=== PATIENT | female | born 1995 | race Caucasian/White ===

== ENCOUNTER → 2019-08-25 11:41 | Outpatient (CLI) | payer BC, MEDICAID, SELFPAY ==
--- NOTE | ~2019-08-25 | XR_ITS ---
EXAMINATION: XR chest 2V EXAM DATE: 08/25/2019 11:56 INDICATION: Cough. TECHNIQUE: Frontal and lateral projections of the chest obtained and reviewed. There is no prior sylvia dy for comparison. FINDINGS: The lungs are clear. There are no pleural effusions. The cardiomediastinal silhouette is within normal limits. There is no pneumothorax suspected. The bones and soft tissues are unremarkab le. IMPRESSION: Normal chest x-ray exam. Reviewed, dictated and finalized at location B. ERHOUSE MECHANIC IMPRESSION: Normal chest x-ray exam.
== END ==
PROVIDERS: PCP Family Medicine; Visit Provider Family Medicine
DX: R05 Cough (principal)
CPT/HCPCS: 71046

== ENCOUNTER 2020-02-15 22:54 | Emergency (ER) | payer MEDICAID, SELFPAY ==
[2020-02-15 22:54] VITALS: BP 146/99; PULSE 89; RESP 14; TEMP 37.2; O2SAT 99
--- NOTE | 2020-02-15 23:02 | ECG_ITS ---
Measurements Intervals [place] Rate: 70 P: 54 ND: 149 QRS: 37 QRSD: 104 T: 26 QT: 373 QTc: 405 Interpretive Statements SINUS RHYTHM WITH MARKED SINUS ARRHYTHMIA MINIMAL Q WAVES- INFERIOR LEADS BASELINE ARTIFACT- I, II, III, AVR, AVL, AVF, V1-V6 BORDERLINE ECG Electronically Signed On 02-16-2020 7:27:49 CDT by Vance Sanchez D.O.
--- NOTE | 2020-02-15 23:02 | ED.PSYCH ---
HPI - Psych General Chief Complaint: Psychiatric Symptoms Stated Complaint: SI Source: patient and EMS Mode of arrival: EMS Limitations: no limitations History of Present Illness HPI Narrative: Patient is a 24-year-old female with a history of bipolar disorder, anxiety, depression, former substance abuse who presents for evaluation of depression. Patient states that she relapsed this evening, after 3 years of drug sobriety, used air duster this evening. She states that she this was not an effort to end her life, but her significant other found her collapsed on the bed, and was worried that she was attempting to harm herself that she has made suicidal claims in the past. No history of suicide attempt. Patient denies other drug use. States that she follows at [facility], also has been with [facility] which has been very helpful to her. Patient states she was recently started on a new medication by her [facility] physician, and she feels this is been detrimental to her mental health. Related Data Home Medications Medication Instructions Recorded Confirmed albuterol sulfate 90 mcg/actuation 2 puff INHALATION Q4H gm 07/27/19 aerosol inhaler oxcarbazepine 600 mg tablet 600 mg PO DAILY tablet 07/27/19 quetiapine 50 mg tablet 50 mg PO BID 07/27/19 temazepam 30 mg capsule 30 mg PO ONCE 07/27/19 clonazepam 02/15/20 Allergies Allergy/AdvReac Type Severity Reaction Status Date / Time latex Allergy Unknown Itching Verified 02/15/20 23:21 Penicillins Allergy Unknown Unknown Verified 02/15/20 23:21 Review of Systems Review of Systems: Narrative: CONSTITUTIONAL: Denies fever, chills, or sweats. EYES: Denies visual changes ENT: Denies rhinorrhea, congestion, sore throat, or otalgia. CARDIOVASCULAR: Denies chest pain RESPIRATORY: Denies cough or dyspnea. GASTROINTESTINAL: Denies abdominal pain, nausea, vomiting GENITOURINARY: Denies dysuria or hematuria. SKIN: Denies rash or itching. MUSCULOSKELETAL: Denies back pain, joint pain, or myalgia. NEUROLOGIC: Denies headache, numbness, or weakness. PSYCHIATRIC: Reports anxiety and depression, denies suicidal ideation PMFSH Past Medical History Medical History (Updated 02/15/20 @ 23:20 by Corazon Das MD) Bipolar disorder Bronchitis Depression Substance abuse Surgical History Surgical History (Updated 02/15/20 @ 23:16 by Corazon Das MD) H/O removal of cyst H/O wisdom tooth extraction Social History Social History (Updated 02/15/20 @ 23:17 by Corazon Das MD) Smoking status: Never smoker Second hand tobacco smoke exposure: Yes Alcohol intake: never Substance use: current Substance use type: inhalants and other Living arrangements: with family Gender identity (if verbalized by the patient): Female Exam Narrative: Exam Narrative: GENERAL: Awake, alert, conversant HEAD: Normocephalic, atraumatic. EYES: PERRLA and EOMI. ENT: Nares clear, no rhinorrhea or epistaxis. Mucous membranes moist. NECK: Supple. CHEST: No respiratory distress, breathing even and non labored HEART: Regular rate, sinus rhythm ABDOMEN:Non distended, non tender EXTREMITIES: Normal range of motion. No edema. SKIN: Warm, dry, no rash. NEURO:No focal deficits. Alert and oriented x3 Psych: Denies suicidal ideation, denies auditory visual hallucinations, reports depression, no anhedonia, affect is appropriate Course Vital Signs Vital signs: Vital Signs Temperature 37.2 C 02/15/20 22:54 Pulse Rate 89 02/15/20 22:54 Respiratory Rate 14 02/15/20 22:54 Blood Pressure 146/99 H 02/15/20 22:54 Pulse Oximetry 99 02/15/20 22:54 Temperature 37.1 C 02/16/20 04:19 Pulse Rate 91 02/16/20 04:19 Respiratory Rate 16 02/16/20 04:19 Blood Pressure 137/84 02/16/20 04:19 Pulse Oximetry 94 02/16/20 04:19 MDM - Psych MDM Narrative Medical decision making narrative: Patient presented after use of inhalant earlie
[2020-02-15 23:24] LABS: Basophils Absolute Auto 0.1 K/mm3 (0.0-0.1); Basophils Percent Auto 0.3 % (0.2-1.2); Eosinophils Absolute Auto 0.1 K/mm3 (0-0.3); Eosinophils Percent Auto 0.7 % (0-4.4); Hematocrit 38.8 % (37.0-47.0); Immature Granulocyte Absolute 0.08 K/mm3 (0.00-0.031); Immature Granulocyte Percent A 0.5 % (0-0.5); Lymphocytes Absolute Auto 2.59 K/mm3 (0.9-3.2); Lymphocytes Percent Auto 16.1 % (18.3-44.2); Mean Corpuscular HGB Conc 33.5 g/dl (32-36); Mean Corpuscular Hemoglobin 32.2 pg (26-34); Mean Platelet Volume 8.6 fl (7.4-10.4); Monocytes Absolute Auto 1.4 K/mm3 (0.1-0.6); Monocytes Percent Auto 8.4 % (2.6-8.5); Neutrophils Absolute Auto 11.9 K/mm3 (1.3-6.7); Platelet Count Result 518 k/mm3 (150-375); Red Blood Count 4.04 M/mm3 (4.2-5.4); Red Cell Distribution Width 13.5 % (11.5-14.5); White Blood Count 16.1 K/mm3 (4.5-10.0)
[2020-02-15 23:38] LABS: Alanine Aminotransferase 19 U/L (4-35); Albumin Level 4.3 g/dL (3.5-5.1); Alkaline Phosphatase 87 U/L (38-126); Aspartate Amino Transferase 31 U/L (14-36); Bilirubin,Total 0.4 mg/dL (0.2-1.3); Blood Urea Nitrogen 11 mg/dL (7-17); Calcium 8.8 mg/dL (8.4-10.2); Carbon Dioxide 24 mmol/L (22-30); Chloride 105 mmol/L (98-107); Estimated CRCL calculation 115 ml/min; Estimated Glomerular Filt Rate > 60; Glucose 118 mg/dL (65-105); Potassium 3.4 mmol/L (3.4-5.0); Sodium 137 mmol/L (137-145)
[2020-02-15 23:50] LABS: Add Urine Microscopic? YES; Appearance Urine Cloudy (Clear); Bacteria Urine Trace /hpf; Bilirubin Urine Negative (Negative); Blood Urine 1+ (Negative); Color Urine Yellow (Yellow); Glucose Urine UA Negative (Negative); Ketones Urine Negative (Negative); Leukocyte Esterase Ur Trace LEU/UL (Negative); Nitrate Urine Negative (Negative); Protein Urine Negative (Negative); Specific Grav Ur 1.008 (1.001-1.035); Squamous Epithelial Cell Urine Many /hpf (Few); Urobilinogen Urine Negative mg/dL (<2.0)
[2020-02-16] MEDS: ONDANSETRON HCL ODT 4 MG TABLET PO (00:40)
[2020-02-16] MEDS: LORazepam 0.5 MG TABLET PO (01:19)
[2020-02-16 01:33] LABS: Amphetamine Screen Urine Negative (Negative); Barbiturate Screen Urine Negative (Negative); Benzodiazepines Screen Urine Negative (Negative); Cannabinoid Screen Urine Positive (Negative); Cocaine Screen Urine Negative (Negative); Methadone Screen Urine Negative (Negative); Opiate Screen Urine Negative (Negative); Phencyclidine Screen Urine Negative (Negative)
[2020-02-16 02:01] VITALS: BP 147/71; PULSE 95; RESP 12; O2SAT 98
--- NOTE | 2020-02-16 03:01 | PC.NURSE ---
Patient getting anxious in room stated I'm tired of waiting on Crisis, stop playing games with me, they aren't even coming.
--- NOTE | 2020-02-16 03:25 | PC.NURSE ---
Crisis here at this time.
[2020-02-16 04:19] VITALS: BP 137/84; PULSE 91; RESP 16; TEMP 37.1; O2SAT 94
== END 2020-02-16 04:50 | disposition home or self-care (01) ==
PROVIDERS: Emergency Provider Emergency Medicine; PCP Family Medicine
DX: F18.10 Inhalant abuse, uncomplicated (principal); F31.9 Bipolar disorder, unspecified; R94.31 Abnormal electrocardiogram [ECG] [EKG]
CPT/HCPCS: 36415; 80053; 80307; 81001; 81025; 84443; 85025; 87077; 87086; 87088; 87186; 93005; 99284; A9270

== ENCOUNTER 2020-09-27 23:59 | Emergency (ER) | payer OTHER, SELFPAY ==
[2020-09-28] VITALS (8 sets, daily range): BP systolic 103–149; BP diastolic 58–97; PULSE 90–100; RESP 16–20; TEMP 36.8–37; O2SAT 97–100
--- NOTE | 2020-09-28 00:06 | ECG_ITS ---
Measurements Intervals [place] Rate: 91 P: 27 IN: 161 QRS: 19 QRSD: 99 T: 3 QT: 351 QTc: 433 Interpretive Statements SINUS RHYTHM POOR R WAVE PROGRESSION, ANTERIOR LEADS INFERIOR INFARCT, AGE INDETERMINATE BASELINE WANDER- V2, V5 ABNORMAL ECG Electronically Signed On 09-28-2020 7:07:06 INTERNET PROJECT MANAGER by Vance Sanchez D.O.
--- NOTE | 2020-09-28 00:53 | PC.NURSE ---
mother and boyfriend in waiting area, boyfriend has text of pt stating she wanted to be , boyfriend denied telling pt to kill herself. mother walked to room to sit with pt. pt still denying suicidal or homicidal thoughts.
[2020-09-28 01:08] LABS: Add Urine Microscopic? YES; Appearance Urine Cloudy (Clear); Basophils Percent Auto 0.3 % (0.2-1.2); Bilirubin Urine Negative (Negative); Blood Urine 3+ (Negative); Color Urine Yellow (Yellow); Eosinophils Absolute Auto 0.1 K/mm3 (0-0.3); Eosinophils Percent Auto 0.5 % (0-4.4); Glucose Urine UA Negative (Negative); Hematocrit 37.8 % (37.0-47.0); Hemoglobin 12.5 g/dL (12.0-15.0); Immature Granulocyte Absolute 0.08 K/mm3 (0.00-0.031); Immature Granulocyte Percent A 0.6 % (0-0.5); Ketones Urine Negative (Negative); Leukocyte Esterase Ur Negative LEU/UL (Negative); Lymphocytes Absolute Auto 2.49 K/mm3 (0.9-3.2); Lymphocytes Percent Auto 19.2 % (18.3-44.2); Mean Corpuscular HGB Conc 33.1 g/dl (32-36); Mean Corpuscular Hemoglobin 31.3 pg (26-34); Mean Corpuscular Volume 94.5 fl (80-100); Mean Platelet Volume 8.6 fl (7.4-10.4); Monocytes Absolute Auto 0.8 K/mm3 (0.1-0.6); Monocytes Percent Auto 6.3 % (2.6-8.5); Mucus Urine Heavy /lpf; Neutrophils Absolute Auto 9.5 K/mm3 (1.3-6.7); Neutrophils Percent Auto 73.1 % (45.5-73.1); Nitrate Urine Negative (Negative); Platelet Count Result 470 k/mm3 (150-375); Protein Urine 1+ mg/dL (Negative); Red Cell Distribution Width 14.6 % (11.5-14.5); Specific Grav Ur 1.016 (1.001-1.035); Squamous Epithelial Cell Urine Many /hpf (Few); Urobilinogen Urine Negative mg/dL (<2.0)
[2020-09-28 01:11] LABS: Alanine Aminotransferase 19 U/L (4-35); Albumin Level 4.2 g/dL (3.5-5.1); Alkaline Phosphatase 85 U/L (38-126); Anion Gap 8 mmol/L (8-16); Aspartate Amino Transferase 24 U/L (14-36); Bilirubin,Total 0.2 mg/dL (0.2-1.3); Blood Urea Nitrogen 19 mg/dL (7-17); Carbon Dioxide 26 mmol/L (22-30); Chloride 107 mmol/L (98-107); Estimated CRCL calculation 120 ml/min; Estimated Glomerular Filt Rate > 60; Glucose 97 mg/dL (65-105); Potassium 3.9 mmol/L (3.4-5.0); Sodium 141 mmol/L (137-145)
[2020-09-28 01:13] LABS: Acetaminophen < 10 ug/mL (10-30); Ethanol < 10 mg/dL (<10); Salicylate < 1.0 mg/dL (2-20)
--- NOTE | 2020-09-28 01:39 | ED.GENADULT ---
HPI - General Adult General Chief complaint: Psychiatric Symptoms <Wilfrid Zhu MD - Last Filed: 09/29/20 06:45> Stated complaint: SI <Wilfrid Zhu MD - Last Filed: 09/29/20 06:45> Time Seen by Provider: 09/28/20 00:05 <Wilfrid Zhu MD - Last Filed: 09/29/20 06:45> History of Present Illness HPI narrative: Patient is a 24-year-old female that presents the emergency department with chief complaint of needs mental health evaluation. The patient reports that she was in an argument with her boyfriend this evening and was outside sitting in the vehicle when police showed up. Per EMS and police patient had made threats of wanting to harm herself this evening. The patient states that currently she has no thoughts of hurting herself reports that she has been very anxious lately states that she has history of depression. Patient reports no plan to harm her self. <Wilfrid Zhu MD - Last Filed: 09/29/20 06:45> Related Data Home medications: Home Medications Medication Instructions Recorded Confirmed albuterol sulfate 90 mcg/actuation 2 puff INHALATION Q4H gm 07/27/19 04/09/20 aerosol inhaler oxcarbazepine 600 mg tablet 600 mg PO BID tablet 07/27/19 04/09/20 quetiapine 50 mg tablet 50 mg PO BID 07/27/19 04/09/20 temazepam 30 mg capsule 30 mg PO ONCE 07/27/19 04/09/20 bupropion HCl mg PO 09/28/20 clonazepam 09/28/20 quetiapine 400 mg PO HS 09/28/20 <Wilfrid Zhu MD - Last Filed: 09/29/20 06:45> Allergies/adverse reactions: Allergies Allergy/AdvReac Type Severity Reaction Status Date / Time latex Allergy Unknown Itching Verified 09/28/20 08:19 Penicillins Allergy Unknown Unknown Verified 09/28/20 08:19 <Wilfrid Zhu MD - Last Filed: 09/29/20 06:45> Review of Systems Review of Systems: Narrative: A 10 system review of systems was completed on the patient and is negative except for what is stated in the HPI. Nursing and ancillary documentation was reviewed. <Wilfrid Zhu MD - Last Filed: 09/29/20 06:45> PMFSH Past Medical History Medical History: Medical History (Updated 09/29/20 @ 00:00 by Sylvie Fairchild) Bipolar disorder Bronchitis Depression Substance abuse <Wilfrid Zhu MD - Last Filed: 09/29/20 06:45> Surgical History Surgical History: Surgical History H/O removal of cyst H/O wisdom tooth extraction <Wilfrid Zhu MD - Last Filed: 09/29/20 06:45> Family History Family History: Family History Mother Diabetes mellitus Depression Family history of malignant neoplasm of cervix Grandparent Diabetes mellitus Depression Family history of malignant neoplasm of cervix Family history of lung cancer Father Family history of mental disorder Depression Hypertension <Wilfrid Zhu MD - Last Filed: 09/29/20 06:45> Social History Social History: Social History Smoking packs per day: 0.5 Smoking cigarettes per day: 10.0 Years smoked: 3 Smoking pack-years: 1.50 Smoking status: Former smoker Second hand tobacco smoke exposure: Yes Alcohol intake: never Substance use: current Substance use type: marijuana, inhalants and other Gender identity (if verbalized by the patient): Female <Wilfrid Zhu MD - Last Filed: 09/29/20 06:45> Exam Narrative: Exam Narrative: GENERAL: Well-appearing, well-nourished, and in no acute distress. HEAD: Normocephalic, atraumatic. EYES: PERRLA and EOMI. ENT: Nares clear, no rhinorrhea or epistaxis. Mucous membranes moist. NECK: Supple. CHEST: Clear to auscultation. No respiratory distress. HEART: Regular rate and rhythm. No murmur heard. Normal peripheral pulses. ABDOMEN: So
[2020-09-28 02:30] LABS: Amphetamine Screen Urine Negative (Negative); Barbiturate Screen Urine Negative (Negative); Benzodiazepines Screen Urine Positive (Negative); Cannabinoid Screen Urine Positive (Negative); Cocaine Screen Urine Negative (Negative); Methadone Screen Urine Negative (Negative); Opiate Screen Urine Negative (Negative); Phencyclidine Screen Urine Negative (Negative)
[2020-09-28] MEDS: LORazepam INJ (*CRX) 2 MG/ML VIAL IM (03:36)
[2020-09-28] MEDS: HALOPERIDOL LACTATE 5 MG/ML VIAL IM (04:23)
[2020-09-28] MEDS: diphenhydrAMINE HCl INJ 50 MG/ML VIAL IM (04:23)
--- NOTE | 2020-09-28 09:15 | PC.NURSE ---
Pt taken to room H3
[2020-09-28] MEDS: QUEtiapine FUMARATE 25 MG TABLET 50 MG PO ×2 (10:16→20:53)
[2020-09-28] MEDS: OXcarbazepine 300 MG TABLET 600 MG PO ×2 (10:16→20:53)
--- NOTE | 2020-09-28 10:55 | PC.NURSE ---
Pt currently on telephone in hallway speaking w/ family member. Pt calm, cooperative. Sitter at pts bedside.
--- NOTE | 2020-09-28 11:45 | PC.NURSE ---
Patient noted to be resting on stretcher with her father in room with her. She wakes easily to verbal stimuli. Patient tells me that she was brought into the ED because of a suicidal threat that was sent to her boyfriend. 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 She denies any desire or thoughts to harm or kill herself or to hurt others. Patient reports psychiatric history as noted on the psychosocial assessment. At this time she is awake, alert, and oriented x 4.
--- NOTE | 2020-09-28 13:00 | PC.NURSE ---
Chart was faxed to [facility] at 1300 after call was received requesting it.
[2020-09-28] MEDS: IBUPROFEN 400 MG TABLET 800 MG PO (15:25)
[2020-09-28] MEDS: clonazePAM (*CRX) 0.5 MG TABLET 1 MG PO (15:26)
--- NOTE | 2020-09-28 16:28 | PC.NURSE ---
PT HAS BEEN ACCEPTED AT [facility] PENDING NEGATIVE COVID SWAB DR WOODY IS ACCEPTING PROVIDER, WHO ALSO REQUESTED THAT THE PT BE STARTED ON UTI MEDICATION ASKING FOR FACESHEET AND NEG COVID SCREEN TO BE FAXED WHEN RESULTS ARE IN
[2020-09-28 19:48] LABS: SARS-CoV-2 RNA PCR Negative
== END 2020-09-28 23:22 ==
PROVIDERS: Emergency Medicine; Emergency Provider General Practice; PCP Family Medicine
DX: R45.851 Suicidal ideations (principal); F31.9 Bipolar disorder, unspecified; Z87.891 Personal history of nicotine dependence; Z20.822 Contact with and (suspected) exposure to COVID-19; R94.31 Abnormal electrocardiogram [ECG] [EKG]
CPT/HCPCS: 36415; 80053; 80307; 81001; 81025; 84443; 85025; 87086; 87088; 93005; 96372; 99285; A9270; C9803; J1200; J1630; J2060; U0003; U0005

== ENCOUNTER 2022-01-31 14:34 | Emergency (ER) | payer OTHER, SELFPAY ==
--- NOTE | ~2022-01-31 | XR_ITS ---
EXAM: XR knee RT min 4V DATE: 01/31/2022 14:54 HISTORY: pain/PRESSURE S/P STEPPING WRONG . COMPARISON: None available. FINDINGS: Normal mineralization. No fracture or dislocation. No lytic or blastic lesion. Joint space s are maintained. No erosion or periosteal change. Moderate volume joint effusion. IMPRESSION: No acute osseous finding in the right knee. Reviewed, dictated and finalized at location K.
[2022-01-31 14:35] VITALS: BP 154/90; PULSE 114; RESP 18; TEMP 36.3; O2SAT 98
--- NOTE | 2022-01-31 15:32 | ED.LOWEXIN ---
HPI - Extremity Injury (Lower) General Chief Complaint: Extremity Injury, Lower <Nicole Jean PA-C - Last Filed: 01/31/22 15:38> Stated Complaint: right knee pain <RENE Kramer Last Filed: 01/31/22 15:38> Time Seen by Provider: 01/31/22 14:49 <Nicole Jean PA-C - Last Filed: 01/31/22 15:38> Source: patient <RENE Kramer Last Filed: 01/31/22 15:38> Mode of arrival: ambulatory <RENE Kramer Last Filed: 01/31/22 15:38> Limitations: no limitations <RENE Kramer Last Filed: 01/31/22 15:38> History of Present Illness HPI Narrative: This is a 26 year old female that presents to the ER for right knee pain after an injury one week ago. Reports she was walking down the steps carrying a heavy box and felt the knee twist. Since she has had pain and swelling in the knee. Pain is worse with weight bearing and bending down. Denies decreased ROM or numbness. <RENE Kramer Last Filed: 01/31/22 15:38> Related Data Home Medications: Home Medications Medication Instructions Recorded Confirmed albuterol sulfate 90 mcg/actuation 2 puff inhalation Q4H 07/27/19 04/09/20 aerosol inhaler (ProAir HFA) oxcarbazepine 600 mg tablet 600 mg PO BID 07/27/19 04/09/20 (Trileptal) quetiapine 50 mg tablet (Seroquel) 50 mg PO BID 07/27/19 04/09/20 temazepam 30 mg capsule (Restoril) 30 mg PO ONCE 07/27/19 04/09/20 bupropion HCl 150 mg 24 hr tablet, mg PO 09/28/20 extended release clonazepam 1 mg tablet 09/28/20 quetiapine 400 mg tablet 400 mg PO HS 09/28/20 <RENE Kramer Last Filed: 01/31/22 15:38> Allergies/Adverse Reactions: Allergies Allergy/AdvReac Type Severity Reaction Status Date / Time latex Allergy Unknown Itching Verified 01/31/22 14:35 Penicillins Allergy Unknown Unknown Verified 01/31/22 14:35 <Nicole Jean PA-C - Last Filed: 01/31/22 15:38> Review of Systems Review of Systems: CONSTITUTIONAL: Denies fever SKIN: Denies rash MUSCULOSKELETAL: Reports joint pain, and myalgia. NEUROLOGIC: Denies numbness, or weakness. <Nicole Jean PA-C - Last Filed: 01/31/22 15:38> All systems reviewed & are unremarkable except as noted in HPI and below <Nicole Jean PA-C - Last Filed: 01/31/22 15:38> [facility] Past Medical History Medical History: Medical History (Updated 01/31/22 @ 15:38 by Nicole Jean PA-C) Bipolar disorder Bronchitis Depression Substance abuse <Nicole Jean PA-C - Last Filed: 01/31/22 15:38> Surgical History Surgical History: Surgical History H/O removal of cyst H/O wisdom tooth extraction <Nicole Jean PA-C - Last Filed: 01/31/22 15:38> Family History Family History: Family History Mother Diabetes mellitus Depression Family history of malignant neoplasm of cervix Grandparent Diabetes mellitus Depression Family history of malignant neoplasm of cervix Family history of lung cancer Father Family history of mental disorder Depression Hypertension <Nicole Jean PA-C - Last Filed: 01/31/22 15:38> Social History Social History: Social History Smoking packs per day: 0.5 Smoking cigarettes per day: 10.0 Years smoked: 3 Smoking pack-years: 1.50 Smoking status: Former smoker Second hand tobacco smoke exposure: Yes Alcohol intake: never Substance use: current Substance use type: marijuana, inhalants and other Gender identity (if verbalized by the patient): Female <Nicole Jean PA-C - Last Filed: 01/31/22 15:38> Exam Narrative: GENERAL: Well-appearing, well-nourished, and in no acute distress. HEAD: Normocephalic, atraumatic. EYES: EOMI. EXTREMITIES: Normal range of motion. No edema, erythema or obvious deformity.
== END 2022-01-31 15:50 | disposition home or self-care (01) ==
PROVIDERS: Emergency Provider Emergency Medicine; PCP Nurse Practitioner
DX: S83.91XA Sprain of unspecified site of right knee, initial encounter (principal); F31.9 Bipolar disorder, unspecified; Z87.891 Personal history of nicotine dependence; X50.9XXA Other and unspecified overexertion or strenuous movements or postures, initial encounter
CPT/HCPCS: 73564; 99283

== ENCOUNTER 2022-02-07 20:32 | Emergency (ER) | payer OTHER, SELFPAY ==
--- NOTE | ~2022-02-07 | XR_ITS ---
EXAMINATION: XR chest 2V Exam Date/Time: 02/07/2022 20:50 CDT HISTORY: pain when coughing on right side of chest,HX ASTHMA Comparison: 08/25/2019. RESULT: Lines, tubes, and devices: None. Lungs and pleura: Clear. Cardiomediastinal silhouette: Stable cardiomediastinal silhouette. Other: No acute osseous or upper abdominal finding. Stable exaggerated thoracic kyphosis. IMPRESSION: No acute cardiopulmonary process. Reviewed, dictated and finalized at location K.
[2022-02-07 20:34] VITALS: BP 174/82; PULSE 95; RESP 18; TEMP 36.4; O2SAT 97
--- NOTE | 2022-02-07 21:11 | ED.SOB ---
HPI - SOB/Dyspnea General Chief Complaint: Shortness of Breath/Dyspnea Stated Complaint: URI Time Seen by Provider: 02/07/22 20:47 History of Present Illness HPI Narrative: 18-year-old female presents the emergency room for evaluation of cough shortness of breath. Patient states that she was seen at her primary care's office 3 days ago for similar symptoms, was diagnosed with possible pneumonia and started on Keflex. Patient states that she is got a history of asthma. Patient is also complaining of sinus congestion, postnasal drip, frequently clearing her throat, rhinorrhea, and occasional sneeze. Patient denies fever. Related Data Home Medications Medication Instructions Recorded Confirmed albuterol sulfate 90 mcg/actuation 2 puff inhalation Q4H 07/27/19 04/09/20 aerosol inhaler (ProAir HFA) oxcarbazepine 600 mg tablet 600 mg PO BID 07/27/19 04/09/20 (Trileptal) quetiapine 50 mg tablet (Seroquel) 50 mg PO BID 07/27/19 04/09/20 temazepam 30 mg capsule (Restoril) 30 mg PO ONCE 07/27/19 04/09/20 bupropion HCl 150 mg 24 hr tablet, mg PO 09/28/20 extended release clonazepam 1 mg tablet 09/28/20 quetiapine 400 mg tablet 400 mg PO HS 09/28/20 Allergies Allergy/AdvReac Type Severity Reaction Status Date / Time latex Allergy Unknown Itching Verified 02/07/22 20:37 Penicillins Allergy Unknown Unknown Verified 02/07/22 20:37 Review of Systems Review of Systems: CONSTITUTIONAL: Denies fever, chills, or sweats. EYES: Denies visual changes, redness, or discharge. ENT: Reports rhinorrhea, congestion, sore throat, or otalgia. CARDIOVASCULAR: Denies chest pain, palpitations, or edema. RESPIRATORY: Reports cough or dyspnea. GASTROINTESTINAL: Denies abdominal pain, nausea, vomiting, or diarrhea. GENITOURINARY: Denies dysuria or hematuria. SKIN: Denies rash or itching. MUSCULOSKELETAL: Denies back pain, joint pain, or myalgia. NEUROLOGIC: Denies headache, numbness, dizziness, or weakness. PSYCHIATRIC: Denies anxiety or depression. [facility] Past Medical History Medical History Bipolar disorder Bronchitis Depression Substance abuse Surgical History Surgical History H/O removal of cyst H/O wisdom tooth extraction Family History Family History Mother Diabetes mellitus Depression Family history of malignant neoplasm of cervix Grandparent Diabetes mellitus Depression Family history of malignant neoplasm of cervix Family history of lung cancer Father Family history of mental disorder Depression Hypertension Social History Social History Smoking packs per day: 0.5 Smoking cigarettes per day: 10.0 Years smoked: 3 Smoking pack-years: 1.50 Smoking status: Former smoker Second hand tobacco smoke exposure: Yes Alcohol intake: never Substance use: current Substance use type: marijuana, inhalants and other Gender identity (if verbalized by the patient): Female Exam Narrative: GENERAL: Well-appearing, well-nourished, and in no acute distress. HEAD: Normocephalic, atraumatic. EYES: PERRLA and EOMI. ENT: Clear rhinorrhea without epistaxis. Mucous membranes moist. Oropharynx without tonsillar hypertrophy exudate or other lesions. Bilateral TMs pearly sands nonbulging NECK: Supple. No adenopathy or masses. No carotid bruits or JVD CHEST: Clear to auscultation. No respiratory distress. No wheezes rales or rhonchi HEART: Regular rate and rhythm. No murmur heard. Normal peripheral pulses. ABDOMEN: Soft, nontender, morbidly obese, normal active bowel sounds. EXTREMITIES: Normal range of motion. No edema. SKIN: Warm, dry, no rash. NEURO: No focal deficits. Alert and oriented x3. PSYCH: Normal mood and affect. Course Vital Signs Vital signs: Vital Signs Temperature
[2022-02-07 21:27] VITALS: O2SAT 97
== END 2022-02-07 21:56 | disposition home or self-care (01) ==
LOC: ANHED 21:23
PROVIDERS: Emergency Provider Nurse Practitioner Family; PCP Nurse Practitioner
DX: J06.9 Acute upper respiratory infection, unspecified (principal); F31.9 Bipolar disorder, unspecified
CPT/HCPCS: 71046; 96372; 99283; J1100

== ENCOUNTER 2023-05-24 18:43 | Emergency (ER) | payer OTHER, SELFPAY ==
--- NOTE | ~2023-05-24 | CT_ITS ---
EXAMINATION: CT abdomen pelvis w con DATE: 05/24/2023 20:55 INDICATION: abdominal pain TECHNIQUE: Computed tomography (CT) of the abdomen and pelvis was performed with 100 mL Omnipaque-350 intravenous contrast. Automated exposure control and iterative reconstruction technique were employe d. The dose-length product was 1601.79 mGy-cm. COMPARISON: None. FINDINGS: Lower thorax: Unremarkable Liver: Normal. Biliary/Gallbladder: Gallbladder is normal. No bile duct dilation. Pancreas: No mass or duct dilation. Spleen: Normal. Adrenals:No mass. Kidneys: No suspicious mass, obstructing stone, or hydronephrosis. GI tract: No small or large bowel dilation. Normal appendix. Mesentery/Peritoneum: No ascites, mass, or free air. Retroperitoneum: No mass. Pelvis: Pelvic organs are within normal limits. Soft Tissues: Soft tissues and body wall unremarkable. Bones: No acute osseous finding. IMPRESSION: No acute abdominopelvic process detected Reviewed, dictated and finalized at location K.
[2023-05-24 18:44] VITALS: BP 131/77; PULSE 102; RESP 16; TEMP 36.8; O2SAT 100
--- NOTE | 2023-05-24 20:05 | ECG_ITS ---
Measurements Intervals [place] Rate: 84 P: 41 MA: 163 QRS: 41 QRSD: 101 T: 15 QT: 358 QTc: 423 Interpretive Statements SINUS RHYTHM COMPARED TO ECG 09/28/2020 01:25:57 NO SIGNIFICANT CHANGES Electronically Signed On 05-25-2023 15:58:02 CDT by Suellen Mccarthy M.D.
[2023-05-24 20:22] LABS: Basophils Percent Auto 0.3 % (0.2-1.2); Eosinophils Percent Auto 0.3 % (0-4.4); Hematocrit 39.9 % (37.0-47.0); Immature Granulocyte Percent A 0.7 % (0-0.5); Lymphocytes Absolute Auto 3.27 K/mm3 (0.9-3.2); Lymphocytes Percent Auto 22.6 % (18.3-44.2); Mean Corpuscular HGB Conc 32.6 g/dl (32-36); Mean Corpuscular Hemoglobin 31.6 pg (26-34); Mean Corpuscular Volume 97.1 fl (80-100); Mean Platelet Volume 8.4 fl (7.4-10.4); Monocytes Absolute Auto 0.7 K/mm3 (0.1-0.6); Monocytes Percent Auto 5.1 % (2.6-8.5); Neutrophils Absolute Auto 10.3 K/mm3 (1.3-6.7); Platelet Count Result 455 k/mm3 (150-375); Red Blood Count 4.11 M/mm3 (4.2-5.4); Red Cell Distribution Width 13.5 % (11.5-14.5); White Blood Count 14.5 K/mm3 (4.5-10.0)
--- NOTE | 2023-05-24 20:32 | ED.ABDPAIN ---
HPI - Abdominal Pain General Chief Complaint: Abdominal Pain Stated Complaint: abdominal pain Time Seen by Provider: 05/24/23 19:08 History of Present Illness HPI narrative: Patient presents to the emergency department with left upper abdominal pain. She is a history of hid. suppurativa. She is concerned about there being abscesses in her abdomen. She states her father has had multiple abscesses in his abdomen in the past. Earlier today she had yellow-greenish drainage from her umbilicus. Lasted 20 minutes. No signs of cellulitis. No residual abdominal umbilical pain. No other symptoms including fevers chills nausea vomiting. She has not seen general surgery for her hidradenitis y Related Data Home Medications Medication Instructions Recorded Confirmed albuterol sulfate 90 mcg/actuation 2 puff inhalation Q4H 07/27/19 04/09/20 aerosol inhaler (ProAir HFA) oxcarbazepine 600 mg tablet 600 mg PO BID 07/27/19 04/09/20 (Trileptal) quetiapine 50 mg tablet (Seroquel) 50 mg PO BID 07/27/19 04/09/20 temazepam 30 mg capsule (Restoril) 30 mg PO ONCE 07/27/19 04/09/20 bupropion HCl 150 mg 24 hr tablet, mg PO 09/28/20 extended release clonazepam 1 mg tablet 09/28/20 quetiapine 400 mg tablet 400 mg PO HS 09/28/20 Allergies Allergy/AdvReac Type Severity Reaction Status Date / Time latex Allergy Unknown Itching Verified 05/24/23 20:15 Penicillins Allergy Unknown Unknown Verified 05/24/23 20:15 Review of Systems Review of Systems: ROS negative except for what is documented in the HPI [facility] Past Medical History Medical History (Updated 05/24/23 @ 20:36 by Brittany Morgan MD) Bipolar disorder Bronchitis Depression Substance abuse Surgical History Surgical History H/O removal of cyst H/O wisdom tooth extraction Family History Family History Mother Diabetes mellitus Depression Family history of malignant neoplasm of cervix Grandparent Diabetes mellitus Depression Family history of malignant neoplasm of cervix Family history of lung cancer Father Family history of mental disorder Depression Hypertension Social History Social History Smoking packs per day: 0.5 Smoking cigarettes per day: 10.0 Years smoked: 3 Smoking pack-years: 1.50 Smoking status: Former smoker Second hand tobacco smoke exposure: Yes Alcohol intake: never Substance use: current Substance use type: marijuana, inhalants and other Living arrangements: with family Gender identity (if verbalized by the patient): Female Exam Narrative: GENERAL: Well-appearing, well-nourished, and in no acute distress. HEAD: Normocephalic, atraumatic. EYES: PERRLA and EOMI. ENT: Nares clear, no rhinorrhea or epistaxis. Mucous membranes moist. NECK: Supple. CHEST: Clear to auscultation. No respiratory distress. HEART: Regular rate and rhythm. ABDOMEN: Soft, nontender, nondistended. EXTREMITIES: Normal range of motion. No edema. SKIN: Warm, dry, no rash. NEURO: No focal deficits. Alert and oriented x3. PSYCH: Normal mood and affect. Course Course Emergency Course: Patient denies any recurrence of pain Labs grossly unremarkable CT scan ordered and reviewed. Negative for any acute intra-abdominal pathology. Results discussed with patient. Plan for Bentyl as needed for worsening pain. We will also refer to general surgery for history of HS Vital Signs Vital signs: Vital Signs Temperature 36.8 C 05/24/23 18:44 Pulse Rate 102 H 05/24/23 18:44 Respiratory Rate 16 05/24/23 18:44 Blood Pressure 131/77 05/24/23 18:44 Pulse Oximetry 100 05/24/23 18:44 Oxygen Delivery Room Air 05/24/23 18:44 Temperature 36.8 C 05/24/23 18:44 Pulse Rate 89 05/24/23 21:43 Respiratory Rate 16 05/24/23 21:43 Blood Pressu
[2023-05-24 20:33] LABS: Alanine Aminotransferase 19 U/L (6-35); Albumin Level 4.3 g/dL (3.5-5.1); Alkaline Phosphatase 78 U/L (38-126); Anion Gap 9 mmol/L (8-16); Appearance Urine Cloudy (Clear); Aspartate Amino Transferase 21 U/L (14-36); Bilirubin Urine 1+ (Negative); Bilirubin,Total 0.6 mg/dL (0.2-1.3); Blood Urea Nitrogen 11 mg/dL (7-17); Blood Urine Trace-intact (Negative); Calcium 9.4 mg/dL (8.4-10.2); Carbon Dioxide 28 mmol/L (22-30); Chloride 101 mmol/L (98-107); Color Urine Yellow (Yellow); Estimated CRCL calculation 112 ml/min; Estimated Glomerular Filt Rate > 60; Glucose 90 mg/dL (65-110); Glucose Urine UA Negative (Negative); Ketones Urine Trace mg/dL (Negative); Leukocyte Esterase Ur Negative LEU/UL (Negative); Lipase 24 U/L (23-300); Nitrate Urine Negative (Negative); Potassium 3.7 mmol/L (3.4-5.0); Protein Urine Trace mg/dL (Negative); Sodium 138 mmol/L (137-145); Specific Grav Ur 1.025 (1.001-1.035); Urobilinogen Urine 0.2 mg/dL (<2.0); pH Urine 5.5 (5.0-9.0)
[2023-05-24 20:47] LABS: Bacteria Urine 3+ /hpf; Mucus Urine Present /lpf; Need Manual Microscopic Reviewed; RBC Urine 21-50 /hpf (0-2); Squamous Epithelial Cell Urine Moderate /hpf (Few)
[2023-05-24 20:48] LABS: Add Urine Microscopic? YES
[2023-05-24 21:43] VITALS: BP 156/83; PULSE 89; RESP 16; O2SAT 100
== END 2023-05-24 22:11 | disposition home or self-care (01) ==
PROVIDERS: Emergency Provider Emergency Medicine; PCP Nurse Practitioner
DX: R10.12 Left upper quadrant pain (principal); F31.9 Bipolar disorder, unspecified; Z87.891 Personal history of nicotine dependence
CPT/HCPCS: 36415; 74177; 80053; 81001; 81025; 83690; 85025; 87086; 93005; 99284; Q9967

== ENCOUNTER 2025-01-16 08:25 | Outpatient (CLI) | payer BC, SELFPAY ==
--- OUTSIDE RECORDS SUMMARY | 2025-01-16 08:32 | XMS_ITS ---
Author Organization [facility] Address [address] [place] [address] Care Team Providers Care Psychiatric Technician Name Role Phone Gray Cary Primary Care Provider [phone] Helen Bradford [phone] REASON FOR VISIT therapy Social History Sex Assigned At : Social History Observation Description Sex Assigned At Female Encounters Encounter Location Date Provider Diagnosis [facility] [place] [address] [place] [address] 01/10/2025 Helen Bradford Plan Of Treatment Next Appt Details Provider Name:Helen mcneal, 01/17/2025 08:20:00 AM, [address], [place], [address], Provider Name:Gray Cary , 01/24/2025 01:00:00 PM, [address], [place], [address], Provider Name:Arlin cullen, 02/07/2025 08:20:00 AM, [address], [place], [address], Progress Notes * Agustina THAPADOOrlando: 9[birth year] (29 yo F)Acc No.[id number]:01/10/2025 UNLOCKED PROGRESS NOTE Patient: Carlos MORANistin Provider: Adriana Bradford LCSW :1995 A ge:29 Y S ex:Female Date:01/10/2025 Address:[address] [place], [id number] Pcp:Gray Cary Subjective: * Chief Complaints: * 1 . Therapy. * Medical History: Objective: * Vitals: Assessment: Plan: * Treatment: * * Electronic signature of Saulo Bradford LCSW, [id number] on 01/16/2025 at 08:31 AM CDT Sign off status: Pending * Provider: Adriana Bradford LCSW Date: 01/10/2025 Generated for Megan salazar/Maddy/Elaine on: 01/16/2025 08:31 AM CDT
--- OUTSIDE RECORDS SUMMARY | 2025-01-16 08:32 | XMS_ITS | Encounter Summary ---
Author Organization [facility] Address [address] [place] [address] Care Team Providers Care Chemicals Distiller Name Role Phone Franck Li MD Primary Care Provider [phone] Encounter Details Date Type Department Care Team (Late st Contact Info) Description 01/18/2015 Telephone [facility] Program [address] [facility] [place] [address] Corazon Haney, MAVERICK Social History Tobacco Use Types Packs/Day Years Used Date Smoking Tobacco: Former Cigarettes Q uit: 05/29/2011 Comments:1 month ago Alcohol Use Standard Drinks/Week Comments No 0 (1 standard drink = 0.6 oz pur e alcohol) occasional-1 beer 2 days ago Comments Unknown Sex and Gender Information Value Date Recorded Sex Assigned at Not on file Legal Sex Female 5:02 AM CURTAIN SUPERVISOR Gender Identity Not on file Sexual Orientation Not on file documented as of this encounter Plan of Treatment Not on file documented as of this encounter Visit Diagnoses Not on filedocumented in this encounter Care Teams Chemicals Distiller Relationship Specialty Start Date End Date Franck Li MD PCP - General Obstetrics and Gynecology 09/08/16 documented as of this encounter
--- OUTSIDE RECORDS SUMMARY | 2025-01-16 08:32 | XMS_ITS | Clinical Summary ---
Author Organization [facility] Address [address] [place] [address] Phone Care Team Providers Care Senior Network Security Architect Name Role Phone Franck Li MD Primary Care Provider Allergies Active Allergy Reactions Criticality Noted Date Comments Latex Hives High 12/28/2014 Penicillins Hives High 06/10/2009 Medications QUEtiapine (SEROQUEL) 100 mg tabletIndicatio ns:mood changes Take 1 Tablet (100 mg) by mouth daily at bedtime. 30 Tablet 0 6 Active Additional Information Patient taking differently: 50 mgOral DAILY AT BEDTIME, Indications: mood changes, Reported on 09/30/2016 FLUoxetine (PROzac) 20 mg capsule Take 1 Capsule (20 mg) by mouth daily. 90 Capsule 5 7 Active FLUoxetine (PROzac) 10 mg tablet Take 1 Tablet (10 mg) by mouth daily To be taken with 20MG to equal 30mg daily. 30 Tablet 5 7 Active LO LOESTRIN FE 1 mg-10 mcg (24)/10 mcg (2) Tablet Take 1 Tablet by mouth daily. 84 Tablet 4 7 Active Active Problems Problem Noted Date Diagnosed Date Fibrocystic breast changes 09/08/2016 Morbid obesity with BMI of 40.0-44.9, adult 08/17 Other bipolar disorder 09/17/2011 Polysubstance abuse Tobacco abuse Routine general medical examination at health ca re facility Resolved Problems Problem Noted Date Diagnosed Date Resolved Date Bipolar I disorder, most rec ent episode (or current) mixed, moderate 04/02/2010 09/17/2011 Family History Medical History Relation Name Comments Heart Failure Maternal Grandfather Depression Maternal Grandmother Depression Mother Depression Paternal Grandfather Alcohol abuse Paternal Grandmother Depression Paternal Grandmother Uterine Cancer Paternal Grandmother Relation Name Status Comments Brother Alive Father Alive Maternal Grandfather Maternal Grandmother Mother Alive Paternal Grandfather Paternal Grandmother Social History Tobacco Use Types Packs/Day Years Used Date Smoking Tobacco: Former Cigarettes 0.5 8 1 - 05/29/2011 E-Cigarette/Mist Inhalation Device Smokeless Tobacco: Current Alcohol Use Standard Drinks/Week Comments No 0 (1 standard drink = 0.6 oz pur e alcohol) hardly ever. 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 file Not on file Not on file Last Filed Vital Signs Vital Sign Reading Time Taken Comments Blood Pressure 148/87 09/07/2019 10:20 AM LOCOMOTIVE ENGINEER DIESEL Pulse 82 09/07/2019 10:20 AM LOCOMOTIVE ENGINEER DIESEL Temperature 36.7 C (98.1 F) 09/07/2019 10:20 AM LOCOMOTIVE ENGINEER DIESEL Respiratory Rate 17 09/07/2019 10:20 AM LOCOMOTIVE ENGINEER DIESEL Oxygen Saturation 100% 09/07/2019 10:20 AM LOCOMOTIVE ENGINEER DIESEL Inhaled Oxygen Concentration - - Weight 106.6 kg (235 lb) 10/26/2016 3:54 PM CDT Height 162.6 cm (5' 4) 10/26/2016 3:54 PM CDT Body Mass Index 40.34 10/26/2016 3:54 PM CDT Plan of Treatment Health Maintenance Due Date Last Done Comments HPV VACCINES (2 - 3-dose series) 09/13/2009 08/16/2009 (Previously completed) DTAP/TDAP/TD VACCINES (1 - Tdap) 2012 HEPATITIS B VACCINES (1 of 3 - 19+ 3-dose series) 2012 HPV/Cotest (21-29) 09/07/2021 09/07/2016 CERVICAL CANCER SCREENING 11/21/2023 HPV/Cotest (30-65) 11/21/2023 09/07/2016 PAP SMEAR 11/21/2023 09/07/2016, 08/2015 (Previously completed) INFLUENZA VACCINE (#1) 2024 Procedures Procedure Name Priority Date/Time Associated Diagnosis Comments CERV/VAG CYTO SCREEN PAP RLFX HPV Routine 09/07/2016 2:16 PM LOCOMOTIVE ENGINEER DIESEL Well female exam with routine gynecological exam Screening for malignant neoplasm of cervix Special screening examination for human papillomavirus (HPV) from Last 3 Months or Most Recently Relevant to Health Maintenance Results * (ABNORMAL) CERV/VAG CYTOPATH, THIN PREP IMAGR RFLX HPV (09/07/2016 2:16 PM LOCOMOTIVE ENGINEER DIESEL) CLINICAL INFORMATION SEE COMMENT 09/14/2016 11:06 AM LOCOMOTIVE ENGINEER DIESEL [facility] Comment:Oral contraceptives LAST MENSTRUAL PERIOD [id number]/14/2016 11:06 AM LOCOMOTIVE ENGINEER DIESEL [facility] PREV PAP: NIL 09/14/2016 11:06 AM LOCOMOTIVE ENGINEER DIESEL [facility] PREV BX: SEE COMMENT 09/14/2016 11:06 AM LOCOMOTIVE ENGINEER DIESEL [facility] Comment:INFORMATION NOT PROV IDED SOURCE Endocervix 09/14/2016 11:06 AM LOCOMOTIVE ENGINEER DIESEL [facility] ADEQUACY: SEE COMMENT 09/14/2016 11:06 AM LOCOMOTIVE ENGINEER DIESEL [facility] Comment: Satisfactory for evaluation. Endocervical/transformation zone component present. GENERAL CATEGORIZATION: SEE COMMENT(A) 09/14/2016 11:06 AM LOCOMOTIVE ENGINEER DIESEL [facility] Comment:EPITHELIAL CELL ABNO RMALITY PAP INTERP SEE COMMENT(A) 09/14/2016 11:06 AM LOCOMOTIVE ENGINEER DIESEL [facility] Comment:Low Grade Squamous I ntraepithelial Lesion (LSIL) COMMENT SEE COMMENT 09/14/2016 11:06 AM LOCOMOTIVE ENGINEER DIESEL [facility] Comment: This Pap test has been evaluated with computer assisted technology. Suggest clinical correlation and follow-up as clinically appropriate MIRROR DEPARTMENT SUPERVISOR: SEE COMMENT 2016 11:06 AM LOCOMOTIVE ENGINEER DIESEL [facility] Comment: DAWSONK CT(ASCP) CT screening location: [place] [address] [place] [address] PATHOLOGIST SEE COMMENT 09/14/2016 11:06 AM LOCOMOTIVE ENGINEER DIESEL [facility] Comment: Ceasar Riley M.D., Board Certified in Anatomic Pathology and Cytopathology. (electronic signature) Genital SWAB OF ENDOCERVIX / Unknown Collection / Unknown 09/07/2016 2:16 PM LOCOMOTIVE ENGINEER DIESEL 09/07/2016 7:47 PM LOCOMOTIVE ENGINEER DIESEL Narrative [facility] - 09/14/2016 11:06 AM LOCOMOTIVE ENGINEER DIESEL Performing Organization Information: Site ID: Name: [facility] Address: [address] [place] [address] Director: Luis Armando Reddy MD Lalo Reese MD PATHOLOGY/CYTOLOGY ORDERA BLES Final Result [facility] from Last 3 Months or Most Recently Relevant to Health Maintenance Insurance [place] Member Subscriber Plan / Payer (Ef fective 2021-Present) Name:Agustina Thapa Relation to Subscriber:Self Name:Agustina Thapa Payer ID:Not on file Group ID:Not on file Type:Medicaid Address: [address] Advance Directives For more information, please contact: [phone] * Full Code (Latest Code Status on File) Date Activated Date Inactivated Comments 12/15/2015 2:22 PM 12/17/2015 12:01 PM Care Teams Senior Network Security Architect Relationship Specialty Start Date End Date Franck Li MD PCP - General Obstetrics and Gynecology 09/08/16
--- OUTSIDE RECORDS SUMMARY | 2025-01-16 08:32 | XMS_ITS | Encounter Summary ---
Author Organization [facility] Address [address] [place] [address] Care Team Providers Care Suspect Artist Supervisor Name Role Phone Christo Ospina NP Primary Care Provider [phone] Encounter Details Date Type Department Care Team (Late st Contact Info) Description 06/20/2021 Treatment [facility] [address] [address] Rita Mejia, DO [address] [facility] [id number] [place] [address] Social History Tobacco Use Types Packs/Day Years Used Date Smoking Tobacco: Never Smokeless Tobacco: Never Alcohol Use Standard Drinks/Week Comments No 0 (1 standard drink = 0.6 oz pur e alcohol) AUDIT-C Answer Date Recorded Q1: How often do you have a drink containing alc ohol? Never 06/23/2021 Average Number of Drinks Not on file 021 Q3: How often do you have si x or more drinks on one occasion? Never 06/23/2021 [place] Depression Scale Answer Date Recorded [place] Depression Scale Total 10 05/20/2021 The thought of harming myself has occurred to me . 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 Gender Identity Not on file Sexual Orientation Not on file documented as of this encounter Functional Status documented as of this encounter Progress Notes * Rita Mejia DO - 06/20/2021 1:49 PM CDT Transfusion Medicine Blood Bank Note Patient Information: ABO/Rh: A negative Antibody screen: Positive Previous antibodies: Present/known: passive Anti-D Antibodies identified: antibody of undetermined specificity (AUS), passive Anti-D Additional testing performed: None Relevant Patient History: Agustina Hurley is a 25 year-old female with recent admission for observation of after concerning non-stress test now monitored as an outpatient. Per chart reveiw, she has no history of transfusions and received Rhogam on 04/28/21. Testing Information: The antibody screen was positive. Antibody identification demonstrated antibodies against an antibody of undetermined specificity (AUS) and against the D antigen in the patient's plasma. Detection of anti-D in this patient's plasma is consistent with the patient's known history of RhIgadministration on 04/28/21 and is therefore categorized as a passive anti-D. Additional testing was not performed. All other common, clinically significant antibodies have been ruled out. Historical antibodies generally considered to be clinically significant include passive Anti-D. Clinical Relevance: An antibody of undetermined specificity (AUS) indicates reactivity that cannot be further characterized. The clinical relevance is unknown at this time. RhIg is a biologic prepared from human plasma that consists of concentrated antibodies directed against the D antigen on red blood cells. Anti-D antibodies may be implicated in hemolytic transfusion reactions with extravascular hemolysis and hemolytic disease of the fetus and . Therefore, anti-D antibodies attributable to RhIg administration may generally be considered clinically significant as long as the passively acquired anti-D is present in the patient's plasma. Presence of this antibody requires that additional testing be performed and this may result in additional time for blood product selection when ordered for transfusion. Therapeutic Relevance: ABO/Rh and crossmatch compatible red blood cell units will be provided for future transfusions. Contact Information: Please contact the [facility] Blood [facility] with any questions. This report has been prepared by: Rita Mejia DO Cosigned by Raghavendra García Jr., MD PhD at 06/20/2021 3:15 PM CDT Associated attestation - Raghavendra García Jr., MD PhD - 06/20/2021 3:15 PM CDT Attestation: I have personally reviewed the antibody result and agree with the interpretation contained in this written blood bank report. Raghavendra García MD PhD documented in this encounter Plan of Treatment Not on file documented as of this encounter Visit Diagnoses Not on filedocumented in this encounter Care Teams Suspect Artist Supervisor Relationship Specialty Start Date End Date Christo Ospina NP [address] [facility] [place] [address] PCP - General 01/16/21 documented as of this encounter
--- OUTSIDE RECORDS SUMMARY | 2025-01-16 08:32 | XMS_ITS | Encounter Summary ---
Author Organization [facility] Address [address] [place] [address] Care Team Providers Care Slide Fastener Chain Assembler Name Role Phone Tiarra Nicolas MD Primary Care Provider [phone] Christo Ospina NP Primary Care Provider [phone] Encounter Details Date Type Department Care Team (Late st Contact Info) Description 11/15/2018 Telephone [facility] [address] [address] Maria Elena Thibodeaux, [facility] Social History Tobacco Use Types Packs/Day Years Used Date Smoking Tobacco: Never Smokeless Tobacco: Never Alcohol Use Standard Drinks/Week Comments No 0 (1 standard drink = 0.6 oz pur e alcohol) Comments Unknown Sex and Gender Information Value Date Recorded Sex Assigned at Not on file Legal Sex Female 5:52 PM WELL SERVICE 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
--- OUTSIDE RECORDS SUMMARY | 2025-01-16 08:32 | XMS_ITS | Patient Health Record ---
Author Organization [facility] Address [address] [place] [address] Care Team Providers Care Casey Saw Operator Name Role Phone Gray Cary Primary Care Provider Christo Ospina Unavailable [phone] Helen Bradford Unavailable [phone] Arlin Geronimo Unavailable [phone] Kira Robledo Unavailable [phone] Allergies Allergen (clinical drug ingredient) Drug/Non Drug Allergy documented on EMR Reaction Allergy Type Onset Date Status Penicillin hives Drug Allergy Active Reason For Referral Reason PREFERS FEMALE, [place] Diagnosis 1 Hidradenitis suppura tiva (L73.2) Referral Organization [facility] Referring Provider First Name Gray Referring Provider Last Name Raeann Referring Provider Speciality Internal edicine Referred Provider Specialty Dermatology Referral Priority Routine Reason NUTRITION AND EXERCI SE COUNSELING Diagnosis 1 Morbid obesity due t o excess calories (E66.01) Referral Organization [facility] Referring Provider First Name Gray Referring Provider Last Name Raeann Referring Provider Speciality Internal edicine Referred Provider Specialty Dietitian Referral Priority Routine Medications Medication SIG (Take, Route, Frequency, Duration) Notes Start Date End Date Status SEROquel 100 MG 1 tablet Orally once daily for 30 days Active traZODone HCl 100 MG 2 tablets at bedtime Orally Once a day for 30 days Active Trileptal 300 MG 1 tablet Orally twice daily for 30 days Active Trileptal 600 MG 1 tablet Orally Twice a day for 30 days Active clonazePAM 0.5 MG Take 1 tablet Orally Once a day for 30 days As needed 01/09/2025 Active DuoNeb 0.5-2.5 (3) MG/3ML 3 mL Inhalation every 6 hrs for 10 days As needed 08/26/2021 Active Nebulizer/Tubing/Ladonna thpiece - as directed for 999 days 08/26/2021 Active Loestrin Fe 1.5 unknown dose Active Calcipotriene 0.005 % Apply 2 gram topically to hands twice a day for 15 days Unknown Nystatin 584227 UNIT/GM 1 application Externally Twice a day 09/07/2023 Not-Taking Nicotine 21 MG/24HR APPLY 1 PATCH TOPICALLY TO SKIN ONCE DAILY for 28 Not-Taking Zithromax Z-Rogelio 250 MG as directed Orally Lost previous rx, needs replacement. 06/28/2024 Not-Taking Doxycycline Hyclate 100 MG 1 capsule Orally twice a day for 5 days 04/21/2024 Active Propranolol HCl 20 MG 1 tablet Orally Once daily for 30 days As needed Not-Taking Ventolin HFA 108 (90 Base) MCG/ACT 2 puffs as needed for shortness of breath Inhalation every 4 hrs for 30 days 12/08/2024 Active Clobetasol Propionate 0.05 % 1 application Externally Twice a day for 30 days As needed RASH ON HANDS Active tiZANidine HCl 4 MG 1 tablet as needed Orally up to three times daily Active Triamcinolone Acetonide 0.1 % 1 application Externally twice a day for 30 days As needed RASH ON BODY 12/27/2024 Active Albuterol Sulfate HFA 108 (90 Base) MCG/ACT 1 puff as needed Inhalation every 4 hrs 06/28/2024 Active Wegovy 0.5 MG/0.5ML 0.5 mL Subcutaneous weekly for 30 days 12/12/2024 Active Omeprazole 40 MG TAKE 1 CAPSULE BY MOUTH ONCE DAILY 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 Yes OPIOID Risk Tool (2018 Edition) Question Answer Notes Family Hx Alcohol? Yes paternal aunt Family Hx Illegal Drugs? No Personal Hx Illegal Drugs? Yes no us e in 4 years Tobacco Control (Standard) Question Answer Notes Additional Findings: Tobacco non-user Current no nsmoker How long has it been since you last smoked? 1-5 years Tobacco use: Former smoker Additional Findings: Tobacco user e-cigarette Section Notes: PRESCRIPTION # FILLED WRITTEN DRUG LABEL QTY DAYS STRENGTH MEDD PRESCRIBER PHARMACY REFILL NO. REFILLS STATE 09/30/2022 09/10/2022 Lisdexamfetamine Dimesylate 30.0 30 30 MG NA Ruby Jewell ([facility]) - [id number] [facility] [address] [place] [address] NA 0 [place] 1 [id number] 09/21/2022 09/21/2022 clonazePAM 5.0 5 0.5 MG NA Ruby Jewell ([facility]) - [id number] [facility] [address] [place] [address] NA 0 [place] 1 [id number] 09/02/2022 09/01/2022 clonazePAM 5.0 5 0.5 MG NA Ruby Jewell ([facility]) - [id number] [facility] [address] [place] [address] NA 0 [place] 1 [id number] 08/20/2022 08/20/2022 Lisdexamfetamine Dimesylate 30.0 30 30 MG NA Ruby Jewell ([facility]) - PRESCRIPTION # FILLED WRITTEN DRUG LABEL QTY DAYS STRENGTH MME PRESCRIBER PHARMACY REFILL NO. REFILLS STATE 07/28/2023 07/15/2023 clonazePAM 5.0 5 0.5 MG NA Kira Robledo [facility] - [id number] [facility] [address] [place] [address] NA 0 [place] 1 [id number] 07/05/2023 07/05/2023 Vyvanse 30.0 30 50 MG NA Kira Robledo [facility] - [id number] [facility] [address] [place] [address] NA 0 [place] 1 [id number] 06/03/2023 05/31/2023 Vyvanse 30.0 30 50 MG NA Kira Robledo [facility] - [id number] [facility] Reviewed CT PDM PRESCRIPTION # FILLED WRITTEN DRUG LABEL QTY DAYS STRENGTH MEDD PRESCRIBER PHARMACY REFILL NO. REFILLS STATE 10/26/2022 10/25/2022 Gabapentin 90.0 30 300 MG NA Bhavesh Villafuerte [facility] [id number] [facility] [address] [place] [address] NA 0 [place] 1 [id number] 10/21/2022 10/21/2022 Lisdexamfetamine Dimesylate 30.0 30 40 MG NA Kira Robledo [facility] - [id number] [facility] [address] [place] [address] NA 0 [place] 1 [id number] 10/21/2022 10/21/2022 clonazePAM 5.0 5 0.5 MG NA Kira Robledo [facility] - [id number] PRESCRIPTION # FILLED WRITTEN DRUG LABEL QTY DAYS STRENGTH MEDD PRESCRIBER PHARMACY REFILL NO. REFILLS STATE 11/09/2022 11/09/2022 clonazePAM 5.0 5 0.5 MG NA Kira Robledo [facility] - [id number] [facility] [address] [place] [address] NA 0 [place] 1 [id number] 10/26/2022 10/25/2022 Gabapentin 90.0 30 300 MG NA Bhavesh Villafuerte - [id number] [facility] [address] [place] [address] NA 0 [place] 1 [id number] 10/21/2022 10/21/2022 clonazePAM 5.0 5 0.5 MG NA Kira Robledo [facility] - [id number] PRESCRIPTION # FILLED WRITTEN DRUG LABEL QTY DAYS STRENGTH MME PRESCRIBER PHARMACY REFILL NO. REFILLS STATE 12/11/2022 12/10/2022 clonazePAM 5.0 5 0.5 MG NA Kira Robledo [facility] - [id number] [facility] [address] [place] [address] NA 0 [place] 1 [id number] 11/26/2022 11/26/2022 Lisdexamfetamine Dimesylate 30.0 30 40 MG NA Kira Robledo [facility] - [id number] [facility] [address] [place] [address] NA 0 [place] 1 [id number] 11/09/2022 11/09/2022 clonazePAM 5.0 5 0.5 MG NA Kira Robledo [facility] - [id number] PRESCRIPTION # FILLED WRITTEN DRUG LABEL QTY DAYS STRENGTH MEDD PRESCRIBER PHARMACY REFILL NO. REFILLS STATE 11/26/2022 11/26/2022 Lisdexamfetamine Dimesylate 30.0 30 40 MG NA Kira Robledo [facility] - [id number] [facility] [address] [place] [address] NA 0 [place] 1 [id number] 11/09/2022 11/09/2022 clonazePAM 5.0 5 0.5 MG NA Kira Robledo [facility] - [id number] [facility] [address] [place] [address] NA 0 [place] 1 [id number] 10/26/2022 10/25/2022 Gabapentin 90.0 30 300 MG NA Bhavesh Villafuerte J - [id number] PRESCRIPTION # FILLED WRITTEN DRUG LABEL QTY DAYS STRENGTH MME PRESCRIBER PHARMACY REFILL NO. REFILLS STATE 12/24/2022 12/24/2022 clonazePAM 5.0 5 0.5 MG NA Kira Robledo [facility] - [id number] [facility] [address] [place] [address] NA 0 [place] 1 [id number] 12/23/2022 12/10/2022 Lisdexamfetamine Dimesylate 30.0 30 40 MG NA Kira Robledo [facility] - [id number] [facility] [address] [place] [address] NA 0 [place] 1 [id number] 12/11/2022 12/10/2022 clonazePAM 5.0 5 0.5 MG NA Kira Robledo [facility] - MS3 PRESCRIPTION # FILLED WRITTEN DRUG LABEL QTY DAYS STRENGTH MME PRESCRIBER PHARMACY REFILL NO. REFILLS STATE 12/24/2022 12/24/2022 clonazePAM 5.0 5 0.5 MG NA Kira Robledo [facility] - [id number] [facility] [place], [place] NA 0 [place] 1 [id number] 12/23/2022 12/10/2022 Lisdexamfetamine Dimesylate 30.0 30 40 MG Kira Valerio [facility] - [id number] [facility] [place], [place] NA 0 [place] 1 [id number] 12/11/2022 12/10/2022 clonazePAM 5.0 5 0.5 MG NA Kira Robledo [facility] - [id number] PRESCRIPTION # FILLED WRITTEN DRUG LABEL QTY DAYS STRENGTH MME PRESCRIBER PHARMACY REFILL NO. REFILLS STATE 03/01/2023 03/01/2023 Lisdexamfetamine Dimesylate 30.0 30 50 MG NA Kira Robledo [facility] - [id number] [facility] [place], [place] NA 0 [place] 1 [id number] 02/25/2023 02/25/2023 5.0 5 NA Kira Robledo [facility] - [id number] [facility] [place] [facility] [place] 1 [id number] 02/15/2023 02/15/2023 clonazePAM 5.0 5 0.5 MG NA Kira Robledo [facility] - [id number] PRESCRIPTION # FILLED WRITTEN DRUG LABEL QTY DAYS STRENGTH MME PRESCRIBER PHARMACY REFILL NO. REFILLS STATE 03/21/2023 03/15/2023 5.0 5 NA Kira Robledo [facility] - [id number] [facility] [place], [place] NA 0 [place] 1 [id number] 03/01/2023 03/01/2023 Lisdexamfetamine Dimesylate 30.0 30 50 MG NA Kira Robledo [facility] - [id number] [facility] [place] 1 [id number] 02/25/2023 02/25/2023 5.0 5 NA Kira Robledo [facility] - [id number] [facility] [address] [place] [address] NA 0 [place] 1 [id number] 02/15/2023 02/15/2023 clonazePAM 5.0 5 0.5 MG NA Kira Robledo [facility] - [id number] PRESCRIPTION # FILLED WRITTEN DRUG LABEL QTY DAYS STRENGTH MME PRESCRIBER PHARMAC[facility] REFILL NO. REFILLS STATE 03/30/2023 03/30/2023 Lisdexamfetamine Dimesylate 30.0 30 50 MG NA Kira Robledo [facility] - [id number] [facility] [address] [place] [address] NA 0 [place] 1 [id number] 03/21/2023 03/15/2023 5.0 5 NA Kira Robledo [facility] - [id number] [facility] [address] [place] [address] NA 0 [place] 1 [id number] 03/01/2023 03/01/2023 Lisdexamfetamine Dimesylate 30.0 30 50 MG NA Kira Robledo [facility] - [id number] [facility] [address] [place] [address] NA 0 [place] 1 [id number] 02/25/2023 02/25/2023 5.0 5 NA Kira Robledo [facility] - [id number] PRESCRIPTION # FILLED WRITTEN DRUG LABEL QTY DAYS STRENGTH MME PRESCRIB[facility] PHARMAC[facility] REFILL NO. REFILLS STATE 05/04/2023 04/01/2023 5.0 5 NA Kira Robledo [facility] - [id number] [facility] [address] [place] [address] NA 0 [place] 1 [id number] 03/30/2023 03/30/2023 Lisdexamfetamine Dimesylate 30.0 30 50 MG NA Kira Robledo [facility] - [id number] [facility] [address] [place] [address] NA 0 [place] 1 [id number] 03/21/2023 03/15/2023 5.0 5 NA Kira Robledo [facility] - [id number] [facility] [address] [place] [address] NA 0 [place] 1 [id number] 03/01/2023 03/01/2023 Lisdexamfetamine Dimesylate 30.0 30 50 MG NA Kira Robledo L [facility] - [id number] PRESCRIPTION # FILLED WRITTEN DRUG LABEL QTY DAYS STRENGTH MME PRESCRIBER PHARMACY REFILL NO. REFILLS STATE 05/04/2023 04/01/2023 5.0 5 NA Kira Robledo [facility] - [id number] [facility] [address] [place] [address] NA 0 [place] 1 [id number] 03/30/2023 03/30/2023 Lisdexamfetamine Dimesylate 30.0 30 50 MG NA Kira Robledo L [facility] - [id number] [facility] [address] [place] [address] NA 0 [place] 1 [id number] 03/21/2023 03/15/2023 5.0 5 NA Kira Robledo [facility] - [id number] [facility] [address] [place] [address] NA 0 [place] 1 [id number] 03/01/2023 03/01/2023 Lisdexamfetamine Dimesylate 30.0 30 50 MG NA Kira Robledo L [facility] - [id number] PRESCRIPTION # FILLED WRITTEN DRUG LABEL QTY DAYS STRENGTH MME PRESCRIBER PHARMACY REFILL NO. REFILLS STATE 06/03/2023 05/31/2023 Vyvanse 30.0 30 50 MG NA Kira Robledo [facility] - [id number] [facility] [address] [place] [address] NA 0 [place] 1 [id number] 05/31/2023 05/31/2023 clonazePAM 5.0 5 0.5 MG NA Kira Robledo L [facility] - [id number] [facility] [address] [place] [address] NA 0 [place] 1 [id number] 05/07/2023 04/26/2023 Vyvanse 30.0 30 50 MG NA Kira Robledo L [facility] - [id number] [facility] [address] [place] [address] NA 0 [place] 1 [id number] 05/04/2023 04/01/2023 clonazePAM 5.0 5 0.5 MG NA MeenaKira sequeira [facility] - [id number] [facility] PRESCRIPTION # FILLED WRITTEN DRUG LABEL QTY DAYS STRENGTH MME PRESCRIBER PHARMACY REFILL NO. REFILLS STATE 06/03/2023 05/31/2023 Vyvanse 30.0 30 50 MG NA Kira Robledo [facility] - [id number] [facility] [place] 1 [id number] 05/31/2023 05/31/2023 clonazePAM 5.0 5 0.5 MG NA Kira Robledo [facility] - [id number] [facility] [place] 1 [id number] 05/07/2023 04/26/2023 Vyvanse 30.0 30 50 MG NA Kira Robledo [facility] - [id number] [facility] PRESCRIPTION # FILLED WRITTEN DRUG LABEL QTY DAYS STRENGTH MME PRESCRIBER PHARMACY REFILL NO. REFILLS STATE 07/05/2023 07/05/2023 Vyvanse 30.0 30 50 MG NA Kira Robledo [facility] - [id number] [facility] [place] 1 [id number] 06/03/2023 05/31/2023 Vyvanse 30.0 30 50 MG NA Kira Robledo [facility] - [id number] [facility] [place] 1 [id number] 05/31/2023 05/31/2023 clonazePAM 5.0 5 0.5 MG NA Kira Robledo Jose A [facility] - [id number] [facility] [place] 1 [id number] 05/07/2023 04/26/2023 Vyvanse 30.0 30 50 MG NA Meena, Cari Jose A [facility] - [id number] [facility] PRESCRIPTION # FILLED WRITTEN DRUG LABEL QTY DAYS STRENGTH MME PRESCRIBER PHARMACY REFILL NO. REFILLS STATE 08/02/2023 08/02/2023 Vyvanse 30.0 30 20 MG NA Meena, Kira L [facility] - [id number] [facility] [address] [place] [address] NA 0 [place] 1 [id number] 07/28/2023 07/15/2023 clonazePAM 5.0 5 0.5 MG NA Kira Robledo [facility] - [id number] [facility] [address] [place] [address] NA 0 [place] 1 [id number] 07/05/2023 07/05/2023 Vyvanse 30.0 30 50 MG NA Kira Robledo [facility] - [id number] [facility] P Reviewed [place] PD[place] PRESCRIPTION # FILLED WRITTEN DRUG LABEL QTY DAYS STRENGTH MME PRESCRIBER PHARMACY REFILL NO. REFILLS STATE 01/25/2023 01/25/2023 Lisdexamfetamine Dimesylate 30.0 30 40 MG NA Kira Robleod [facility] - [id number] [facility] [address] [place] [address] NA 0 [place] 1 [id number] 01/21/2023 01/21/2023 clonazePAM 5.0 5 0.5 MG NA Kira Robledo [facility] - [id number] [facility] [address] [place] [address] NA 0 [place] 1 [id number] 12/24/2022 12/24/2022 clonazePAM 5.0 5 0.5 MG NA Kira Robledo [facility] - [id number] PRESCRIPTION # FILLED WRITTEN DRUG LABEL QTY DAYS STRENGTH MME PRESCRIBER PHARMACY REFILL NO. REFILLS STATE 02/15/2023 02/15/2023 clonazePAM 5.0 5 0.5 MG NA Kira Robledo [facility] - [id number] [facility] [address] [place] [address] NA 0 [place] 1 [id number] 01/25/2023 01/25/2023 Lisdexamfetamine Dimesylate 30.0 30 40 MG NA Kira Robledo L [facility] - MS3 PRESCRIPTION # FILLED WRITTE N DRUG LABEL QTY DAYS STRENGTH MME PRESCRIBER PHARMACY REFILL NO. REFILLS STATE PATIENT [id number] 09/09/2023 12/30/2022 Gabapentin 90.0 30 300 MG NA Bhavesh Villafuerte - [id number] [facility] [place], [place] NA 1 [place] [id number] 09/02/2023 09/01/2023 clonazePAM 10.0 10 0.5 MG NA Meena Kira Naranjo [facility] - [id number] [facility] [place], [place] NA 0 [place] [id number] 09/01/2023 09/01/2023 Vyvanse 30.0 30 50 MG NA Meena Kira Naranjo [facility] - [id number] [facility] [place], [place] NA 0 [place] [id number] 08/02/2023 08/02/2023 Vyvanse 30.0 30 20 MG NA Shaquille Robledopanda Naranjo [facility] - [id number] [facility] [place] PRESCRIPTION # FILLED WRITTEN DRUG LABEL QTY DAYS STRENGTH MME PRESCRIBER PHARMACY REFILL NO. REFILLS STATE 01/07/2024 01/06/2024 Amphetamine Salt Combo 60.0 30 20 MG NA Meena Kira Naranjo [facility] - [id number] [facility] [place], [place] NA 0 [place] 1 [id number] 09/09/2023 12/30/2022 Gabapentin 90.0 30 300 MG NA Bhavesh Villafuerte - [id number] [facility] [place], [place] NA 1 [place] 1 [id number] 09/02/2023 09/01/2023 clonazePAM 10.0 10 0.5 MG NA Meena Kira Naranjo [facility] - [id number] [facility] [place], [place] NA 0 [place] 1 [id number] 09/01/2023 09/01/2023 Vyvanse 30.0 30 50 MG NA Meena, Kira Naranjo [facility] - [id number] Prescription # Filled Written Drug Label Qty Days Strength MME Prescriber Pharmacy Refill No. Refills State 03/14/2024 03/14/2024 Lisdexamfetamine Dimesylate 30.0 30 50 MG NA Kira Robledo [facility] - [id number] [facility] [place], [place] NA 0 [place] 1 [id number] 01/07/2024 01/06/2024 Amphetamine Salt Combo 60.0 30 20 MG NA Kira Robledo [facility] - [id number] [facility] [place], [place] NA 0 [place] 1 [id number] 09/09/2023 12/30/2022 Gabapentin 90.0 30 300 MG NA Bhavesh Villafuerte J - [id number] Problems Problem Type SNOMED Code ICD Code Onset Dates Problem Status W/U Status Risk Notes Problem 90583829 Bipolar disorder, in partial remission, most recent episode manic (F31.73) 01/11/20 Active confirmed Problem Generalized anxiety disorder (80349454) Generalized anxiety disorder (F41.1) Active confirmed Problem Borderline personality disorder (04258363) Borderline personality disorder (F60.3) 12/31/19 Active confirmed Problem 35898919 Hidradenitis suppurativa (L73.2) Active confirmed Problem 831308121947194 Primary osteoarthritis, right shoulder (M19.011) Active confirmed Problem 134141099290796 Primary osteoarthritis, left shoulder (M19.012) Active confirmed Problem 937914162 Body mass index (BMI) 45.0-49.9, adult (Z68.42) Active confirmed Problem Posttraumatic stress disorder (36603668) PTSD (post-traumatic stress disorder) (F43.10) Active confirmed Problem Attention deficit hyperactivity disorder (608980806) ADHD (attention deficit hyperactivity disorder) (F90.9) Active confirmed Problem 76145192 Vitamin D deficiency (E55.9) Active confirmed Problem Major depressive disorder (845514924) Major depressive disorder (F32.9) 01/11/20 Active confirmed Problem Depressive disorder (35117609) Depressive disorder (F32.9) Active confirmed Problem Psoriasis (5010600) Psoriasis (L40.9) Active confirmed Problem Overweight (623391095) Over weight (E66.3) Active confirmed Problem Missed period (62226727) Missed period (N92.6) Active confirmed Problem 184147969 Morbid obesity due to excess calories (E66.01) Active confirmed Problem Binge eating disorder (459676065) Binge eating disorder (F50.81) 12/31/19 Active confirmed Problem Premenstrual tension syndrome (34141374) PMDD (premenstrual dysphoric disorder) (F32.81) Active confirmed Problem 83486681 Hypertension, unspecified type (I10) 03/06/20 Active confirmed Vital Signs Heart Rate 78 /min 01/09/2025 Temperature 98.4 degrees Fahrenheit 01/09/2025 Respiratory Rate 18 /min 01/09/2025 Oximetry 99 % 01/09/2025 Blood pressure diastolic 80 mm Hg 01/09/2025 Height 64 in 01/09/2025 Blood pressure systolic 122 mm Hg 01/09/2025 Weight 251.8 lbs 01/09/2025 BMI 43.22 kg/m2 01/09/2025 Encounters Encounter Location Date Provider Diagnosis [address] [address] 11/01/[address] [address] 11/22/[address] [address] 01/18/2024 Kira Robledo Binge eating disorde r F50.81 ; Vitamin D deficiency E55.9 ; PTSD (post-traumatic stress disorder) F43.10 ; Borderline personality disorder F60.3 and Encounter for medication monitoring Z51.[address] [address] 01/19/2024 Helen Sanftleben PTSD (post-traumatic stress disorder) F43.10 and Major depressive disorder F32.[address] [address] 01/26/2024 Helen Sanftleben PTSD (post-traumatic stress disorder) F43.10 and Major depressive disorder F32.[address] [address] 02/09/2024 Helen Sanftleben PTSD (post-traumatic stress disorder) F43.10 and Generalized anxiety disorder F41.[address] [address] 02/15/2024 Kira Robledo Binge eating disorde r F50.81 ; Vitamin D deficiency E55.9 ; PTSD (post-traumatic stress disorder) F43.10 ; Borderline personality disorder F60.3 and Encounter for medication monitoring Z51.[address] [address] 03/01/2024 Helen Sanftleben PTSD (post-traumatic stress disorder) F43.10 and Generalized anxiety disorder F41.[address] [address] 03/14/2024 Kira Robledo Binge eating disorde r F50.81 ; Vitamin D deficiency E55.9 ; PTSD (post-traumatic stress disorder) F43.10 ; Borderline personality disorder F60.3 and Encounter for medication monitoring Z51.[address] [address] 03/15/2024 Helen Sanftleben Generalized anxiety disorder F41.1 and Borderline personality disorder F60.[address] [address] 04/05/2024 Helen Sanftleben PTSD (post-traumatic stress disorder) F43.10 and Generalized anxiety disorder F41.[address] [address] 04/11/2024 Kira Robledo Binge eating disorde r F50.81 ; Vitamin D deficiency E55.9 ; PTSD (post-traumatic stress disorder) F43.10 ; Borderline personality disorder F60.3 ; Encounter for medication monitoring Z51.81 and ADHD (attention deficit hyperactivity disorder) F90.[address] [address] 04/19/2024 Helen Sanftleben PTSD (post-traumatic stress disorder) F43.10 and Generalized anxiety disorder F41.1 [facility] [address] [address] 04/26/2024 Helen Sanftleben PTSD (post-traumatic stress disorder) F43.10 and Generalized anxiety disorder F41.[address] [address] 05/02/2024 Helen Sanftleben PTSD (post-traumatic stress disorder) F43.10 and Major depressive disorder F32.[address] [place] [address] 05/03/2024 Helen Sanftleben PTSD (post-traumatic stress disorder) F43.10 and Borderline personality disorder F60.[address] [place] [address] 05/10/2024 Helen Sanftleben PTSD (post-traumatic stress disorder) F43.10 and Borderline personality disorder F60.[address] [address] 05/17/2024 Helen Sanftleben Major depressive disorder F32.9 and Borderline personality disorder F60.[address] [place] [address] 05/24/2024 Helen Sanftleben PTSD (post-traumatic stress disorder) F43.10 ; Borderline personality disorder F60.3 and Bipolar disorder, in partial remission, most recent episode manic F31.[address] [address] 05/31/2024 Helen Sanftleben PTSD (post-traumatic stress disorder) F43.10 and Major depressive disorder F32.[address] [place] [address] 06/15/2024 Helen Sanftleben [address] [place] [address] 07/03/2024 Helen Sanftleben PTSD (post-traumatic stress disorder) F43.10 and Bipolar disorder, in partial remission, most recent episode manic F31.[address] [place] [address] 07/05/2024 Helen Sanftleben PTSD (post-traumatic stress disorder) F43.10 and Borderline personality disorder F60.[address] [place] [address] 07/21/2024 Helen Sanftleben PTSD (post-traumatic stress disorder) F43.10 and Borderline personality disorder F60.[address] [place] [address] 08/02/2024 Helen Sanftleben PTSD (post-traumatic stress disorder) F43.10 and Generalized anxiety disorder F41.[address] [address] 08/18/2024 Helen Sanftleben PTSD (post-traumatic stress disorder) F43.10 and Major depressive disorder F32.[address] [address] 08/30/2024 Helen Sanftleben PTSD (post-traumatic stress disorder) F43.10 ; Generalized anxiety disorder F41.1 and Major depressive disorder F32.[address] [address] 09/25/2024 Arlin Geronimo Borderline personality disorder F60.3 ; Depressive disorder F32.9 ; PTSD (post-traumatic stress disorder) F43.10 ; Generalized anxiety disorder F41.1 ; PMDD (premenstrual dysphoric disorder) F32.81 and ADHD (attention deficit hyperactivity disorder) F90.[address] [place] [address] 09/27/2024 Helen Sanftleben PTSD (post-traumatic stress disorder) F43.10 and Bipolar disorder, in partial remission, most recent episode manic F31.[address] [place] [address] 10/18/2024 Helen Sanftleben Generalized anxiety disorder F41.1 and Bipolar disorder, in partial remission, most recent episode manic F31.73 [facility] [address] [place] [address] 10/24/2024 Arlin Geronimo ADHD (attention deficit hyperactivity disorder) F90.9 ; Borderline personality disorder F60.3 ; Depressive disorder F32.9 ; PTSD (post-traumatic stress disorder) F43.10 ; Generalized anxiety disorder F41.1 and PMDD (premenstrual dysphoric disorder) F32.81 [facility] [address] [place] [address] 11/21/2024 Arlin Geronimo ADHD (attention deficit hyperactivity disorder) F90.9 ; Borderline personality disorder F60.3 ; Depressive disorder F32.9 ; PTSD (post-traumatic stress disorder) F43.10 ; Generalized anxiety disorder F41.1 and PMDD (premenstrual dysphoric disorder) F32.[address] [place] [address] 12/06/2024 Helen Bradford PTSD (post-traumatic stress disorder) F43.10 and Generalized anxiety disorder F41.1 [place] [address] [facility] [place] [address] 12/08/2024 Gray Cary Acute sinusitis, unspecified J01.90 and Shortness of breath R06.[address] [place] [address] 12/13/2024 Helen Suzette PTSD (post-traumatic stress disorder) F43.10 and Generalized anxiety disorder F41.1 [facility] [place] [address] 12/19/2024 Arlin Geronimo ADHD (attention deficit hyperactivity disorder) F90.9 ; Depressive disorder F32.9 ; Borderline personality disorder F60.3 ; PTSD (post-traumatic stress disorder) F43.10 ; Generalized anxiety disorder F41.1 ; PMDD (premenstrual dysphoric disorder) F32.81 and Over weight E66.[address] [facility] [address] 12/20/2024 Helen Sanftlebesubhash PTSD (post-traumatic stress disorder) F43.10 and Bipolar disorder, in partial remission, most recent episode manic F31.[address] [address] 12/27/2024 Gray Cary Morbid obesity due t o excess calories E66.01 ; Psoriasis L40.9 and Hidradenitis suppurativa L73.[address] [address] 12/27/2024 Helen Sanftlebesubhash PTSD (post-traumatic stress disorder) F43.10 and Generalized anxiety disorder F41.[address] [address] 01/01/2025 Helen Sanftlebesubhash PTSD (post-traumatic stress disorder) F43.10 and Bipolar disorder, in partial remission, most recent episode manic F31.73 [place] [address] [address] 01/09/2025 Arlin Geronimo ADHD (attention deficit hyperactivity disorder) F90.9 ; Depressive disorder F32.9 ; Borderline personality disorder F60.3 ; PTSD (post-traumatic stress disorder) F43.10 ; Generalized anxiety disorder F41.1 ; PMDD (premenstrual dysphoric disorder) F32.81 and Over weight E66.[address] [address] 02/07/2024 Kira Robledo Binge eating disorde r F50.[address] [address] 02/14/2024 Kira Robledo [address] [address] 03/02/2024 Christo Ospina [address] [address] 03/14/2024 Kira Robledo Vitamin D deficiency E55.9 and Binge eating disorder F50.[address] [address] 04/21/2024 Christo Ospina [address] [address] 04/26/2024 Christo Ospina [address] [address] 05/03/2024 Christo Ospina PTSD (post-traumatic stress disorder) F43.[address] [address] 05/12/2024 Christo Ospina Binge eating disorde r F50.[address] [address] 05/23/2024 Christo Ospina [address] [address] 06/24/2024 Christo Ospina [address] [address] 06/28/2024 Christo Ospina Shortness of breath R06.[address] [address] 07/02/2024 Christo Ospina [address] [address] 07/21/2024 Christo Ospina PTSD (post-traumatic stress disorder) F43.[address] [address] 08/04/2024 Christo Ospina PTSD (post-traumatic stress disorder) F43.[address] [place] [address] 10/09/2024 Arlin Geronimo ADHD (attention deficit hyperactivity disorder) F90.[address] [address] 10/17/2024 Arlin Geronimo ADHD (attention deficit hyperactivity disorder) F90.[address] [place] [address] 10/31/2024 Arlin Geronimo ADHD (attention deficit hyperactivity disorder) F90.9 ; Medication monitoring encounter Z51.81 and PTSD (post-traumatic stress disorder) F43.10 [facility] [address] [place] [address] 11/21/2024 Arlin Geronimo [place] [address] [place] [address] 11/22/2024 Arlin Geronimo ADHD (attention deficit hyperactivity disorder) F90.9 [place] [address] [place] [address] 12/08/2024 Gray Cary [place] [address] [place] [address] 12/12/2024 Gray Cary [place] [address] [facility] [place] [address] 12/12/2024 Arlin Geronimo [place] [address] [place] [address] 01/09/2025 Arlin Geronimo Assessments Encounter Date Diagnosis (ICD Code) Assessment Notes Treatment Notes Treatment Clinical Notes Section Notes 10/31/2024 ADHD (attention deficit hyperactivity disorder) (ICD-10 - F90.9) 12/27/2024 Morbid obesity due to excess calories (ICD-10 - E66.01) 12/27/2024 Psoriasis (ICD-10 - L40.9) 07/21/2024 PTSD (post-traumatic stress disorder) (ICD-10 - F43.10) 05/31/2024 PTSD (post-traumatic stress disorder) (ICD-10 - F43.10) 12/19/2024 ADHD (attention deficit hyperactivity disorder) (ICD-10 - F90.9) continue to monitor anxiety PDMP checked without concerns. 12/20/2024 PTSD (post-traumatic stress disorder) (ICD-10 - F43.10) 12/27/2024 PTSD (post-traumatic stress disorder) (ICD-10 - F43.10) 05/24/2024 PTSD (post-traumatic stress disorder) (ICD-10 - F43.10) Pt will continue medications as prescribed and will continue therapy to develop goals and manage symptoms. 05/17/2024 Major depressive disorder (ICD-10 - F32.9) Pt will continue medications as prescribed and will continue therapy to develop goals and manage symptoms. 05/12/2024 Binge eating disorder (ICD-10 - F50.81) 05/10/2024 PTSD (post-traumatic stress disorder) (ICD-10 - F43.10) Pt will continue medications as prescribed and will continue therapy to develop goals and manage symptoms. 05/02/2024 PTSD (post-traumatic stress disorder) (ICD-10 - F43.10) Pt will continue medications as prescribed and will continue therapy to develop goals and manage symptoms. 04/19/2024 PTSD (post-traumatic stress disorder) (ICD-10 - F43.10) Pt will continue medications as prescribed and will continue therapy to develop goals and manage symptoms. 04/11/2024 Binge eating disorder (ICD-10 - F50.81) Continue Vyvanse for BED [facility] on file Continue with therapy. Pt has crisis contact information Labs are up to date Follow up in 1 week or earlier if needed 03/14/2024 Binge eating disorder (ICD-10 - F50.81) DC Adderall to 20mg BID Restart Vyvanse for BED [facility] on file Continue with therapy. Pt has crisis contact information Labs are up to date Follow up in 1 week or earlier if needed 02/09/2024 PTSD (post-traumatic stress disorder) (ICD-10 - F43.10) Pt will continue medications as prescribed and will continue therapy to develop goals and manage symptoms. 02/07/2024 Binge eating disorder (ICD-10 - F50.81) 01/26/2024 PTSD (post-traumatic stress disorder) (ICD-10 - F43.10) Pt will continue medications as prescribed and will continue therapy to develop goals and manage symptoms. 01/19/2024 PTSD (post-traumatic stress disorder) (ICD-10 - F43.10) Pt will continue medications as prescribed and will continue therapy to develop goals and manage symptoms. 01/18/2024 Binge eating disorder (ICD-10 - F50.81) Continue Adderall to 20mg BID [facility] on file Continue with therapy. Pt has crisis contact information Labs are up to date Follow up in 1 week or earlier if needed 02/15/2024 Binge eating disorder (ICD-10 - F50.81) Continue Adderall to 20mg BID [facility] on file Continue with therapy. Pt has crisis contact information Labs are up to date Follow up in 1 week or earlier if needed 03/01/2024 PTSD (post-traumatic stress disorder) (ICD-10 - F43.10) Pt will continue medications as prescribed and will continue therapy to develop goals and manage symptoms. 03/14/2024 Vitamin D deficiency (ICD-10 - E55.9) 03/15/2024 Generalized anxiety disorder (ICD-10 - F41.1) Pt will continue medications as prescribed and will continue therapy to develop goals and manage symptoms. 04/05/2024 PTSD (post-traumatic stress disorder) (ICD-10 - F43.10) Pt will continue medications as prescribed and will continue therapy to develop goals and manage symptoms. 04/26/2024 PTSD (post-traumatic stress disorder) (ICD-10 - F43.10) Pt will continue medications as prescribed and will continue therapy to develop goals and manage symptoms. 05/03/2024 PTSD (post-traumatic stress disorder) (ICD-10 - F43.10) 05/03/2024 PTSD (post-traumatic stress disorder) (ICD-10 - F43.10) Pt will continue medications as prescribed and will continue therapy to develop goals and manage symptoms. 06/28/2024 Shortness of breath (ICD-10 - R06.02) 07/03/2024 PTSD (post-traumatic stress disorder) (ICD-10 - F43.10) 07/21/2024 PTSD (post-traumatic stress disorder) (ICD-10 - F43.10) 08/02/2024 PTSD (post-traumatic stress disorder) (ICD-10 - F43.10) 08/04/2024 PTSD (post-traumatic stress disorder) (ICD-10 - F43.10) 09/27/2024 PTSD (post-traumatic stress disorder) (ICD-10 - F43.10) 10/18/2024 Generalized anxiety disorder (ICD-10 - F41.1) 11/22/2024 ADHD (attention deficit hyperactivity disorder) (ICD-10 - F90.9) 12/08/2024 Acute sinusitis, unspecified (ICD-10 - J01.90) 12/08/2024 Shortness of breath (ICD-10 - R06.02) 12/13/2024 PTSD (post-traumatic stress disorder) (ICD-10 - F43.10) 10/31/2024 Medication monitoring encounter (ICD-10 - Z51.81) 10/24/2024 ADHD (attention deficit hyperactivity disorder) (ICD-10 - F90.9) continue to monitor anxiety 10/17/2024 ADHD (attention deficit hyperactivity disorder) (ICD-10 - F90.9) 10/09/2024 ADHD (attention deficit hyperactivity disorder) (ICD-10 - F90.9) 09/25/2024 Borderline personality disorder (ICD-10 - F60.3) Continue therapy 09/25/2024 Depressive disorder (ICD-10 - F32.9) discussed r/b/se 08/30/2024 PTSD (post-traumatic stress disorder) (ICD-10 - F43.10) 08/18/2024 PTSD (post-traumatic stress disorder) (ICD-10 - F43.10) 07/05/2024 PTSD (post-traumatic stress disorder) (ICD-10 - F43.10) 01/09/2025 ADHD (attention deficit hyperactivity disorder) (ICD-10 - F90.9) continue to monitor anxiety PDMP checked without concerns. 01/01/2025 PTSD (post-traumatic stress disorder) (ICD-10 - F43.10) 12/06/2024 PTSD (post-traumatic stress disorder) (ICD-10 - F43.10) 11/21/2024 ADHD (attention deficit hyperactivity disorder) (ICD-10 - F90.9) continue to monitor anxiety PDMP checked without concerns. 11/21/2024 Borderline personality disorder (ICD-10 - F60.3) Continue therapy Discussed depression, continue at current doses 12/06/2024 Generalized anxiety disorder (ICD-10 - F41.1) 01/09/2025 Depressive disorder (ICD-10 - F32.9) discussed r/b/se 01/01/2025 Bipolar disorder, in partial remission, most recent episode manic (ICD-10 - F31.73) 08/18/2024 Major depressive disorder (ICD-10 - F32.9) 07/05/2024 Borderline personality disorder (ICD-10 - F60.3) 10/31/2024 PTSD (post-traumatic stress disorder) (ICD-10 - F43.10) 08/30/2024 Generalized anxiety disorder (ICD-10 - F41.1) 09/25/2024 PTSD (post-traumatic stress disorder) (ICD-10 - F43.10) 10/24/2024 Borderline personality disorder (ICD-10 - F60.3) Continue therapy Discussed depression, continue at current doses Client has f/u with OB on November 14 and may discuss an increase in BC as she notes symptoms continue to fluctuate around her BC packs. States stability overall at this time, denies SI/HI. 12/13/2024 Generalized anxiety disorder (ICD-10 - F41.1) 10/18/2024 Bipolar disorder, in partial remission, most recent episode manic (ICD-10 - F31.73) 09/27/2024 Bipolar disorder, in partial remission, most recent episode manic (ICD-10 - F31.73) 08/02/2024 Generalized anxiety disorder (ICD-10 - F41.1) 07/03/2024 Bipolar disorder, in partial remission, most recent episode manic (ICD-10 - F31.73) 05/03/2024 Borderline personality disorder (ICD-10 - F60.3) Pt will continue medications as prescribed and will continue therapy to develop goals and manage symptoms. 04/26/2024 Generalized anxiety disorder (ICD-10 - F41.1) Pt will continue medications as prescribed and will continue therapy to develop goals and manage symptoms. 03/15/2024 Borderline personality disorder (ICD-10 - F60.3) Pt will continue medications as prescribed and will continue therapy to develop goals and manage symptoms. 04/05/2024 Generalized anxiety disorder (ICD-10 - F41.1) Pt will continue medications as prescribed and will continue therapy to develop goals and manage symptoms. 03/14/2024 Binge eating disorder (ICD-10 - F50.81) 03/01/2024 Generalized anxiety disorder (ICD-10 - F41.1) Pt will continue medications as prescribed and will continue therapy to develop goals and manage symptoms. 02/15/2024 Vitamin D deficiency (ICD-10 - E55.9) 01/18/2024 Vitamin D deficiency (ICD-10 - E55.9) 01/19/2024 Major depressive disorder (ICD-10 - F32.9) Pt will continue medications as prescribed and will continue therapy to develop goals and manage symptoms. 01/26/2024 Major depressive disorder (ICD-10 - F32.9) Pt will continue medications as prescribed and will continue therapy to develop goals and manage symptoms. 02/09/2024 Generalized anxiety disorder (ICD-10 - F41.1) Pt will continue medications as prescribed and will continue therapy to develop goals and manage symptoms. 03/14/2024 Vitamin D deficiency (ICD-10 - E55.9) 04/11/2024 Vitamin D deficiency (ICD-10 - E55.9) 04/11/2024 PTSD (post-traumatic stress disorder) (ICD-10 - F43.10) Continue with counseling. Follow up in 4 weeks Benzodiazepines are not recommended for long-term use due to potent and dangerous side effects that include increased drowsiness, memory impairment, increased irritability, mood changes, and worsening of PTSD symptoms. Benzodiazepines increase respiratory depression which can aggravate conditions such as sleep apnea and COPD leading to possible . They should also never be combined with alcohol, pain medications (especially opioids), or street drugs because this can lead to overdose and possible . If you are under the influence of benzodiazepines while operating a motor vehicle and are involved in a car accident you can be charged with driving while intoxicated. Benzodiazepine use increases unsteady gait thereby increasing the risk of falls, broken bones, and concussions. Benzodiazepine use is intended for short-term use, up to 3 weeks at most. Long-term use of benzos can lead to dependence, rebound anxiety/agitation, and withdrawal symptoms that include sleep disturbance, irritability, increased tension and anxiety, panic attacks, hand tremor, sweating, difficulty in concentration, dry retching, and nausea, some weight loss, palpitations, headache, muscular pain and stiffness, and a host of perceptual changes. 05/02/2024 Major depressive disorder (ICD-10 - F32.9) Pt will continue medications as prescribed and will continue therapy to develop goals and manage symptoms. 04/19/2024 Generalized anxiety disorder (ICD-10 - F41.1) Pt will continue medications as prescribed and will continue therapy to develop goals and manage symptoms. 05/10/2024 Borderline personality disorder (ICD-10 - F60.3) Pt will continue medications as prescribed and will continue therapy to develop goals and manage symptoms. 05/17/2024 Borderline personality disorder (ICD-10 - F60.3) Pt will continue medications as prescribed and will continue therapy to develop goals and manage symptoms. 12/27/2024 Hidradenitis suppurativa (ICD-10 - L73.2) 12/27/2024 Generalized anxiety disorder (ICD-10 - F41.1) 12/19/2024 Depressive disorder (ICD-10 - F32.9) discussed r/b/se 12/20/2024 Bipolar disorder, in partial remission, most recent episode manic (ICD-10 - F31.73) 05/31/2024 Major depressive disorder (ICD-10 - F32.9) 05/24/2024 Borderline personality disorder (ICD-10 - F60.3) Pt will continue medications as prescribed and will continue therapy to develop goals and manage symptoms. 07/21/2024 Borderline personality disorder (ICD-10 - F60.3) 05/24/2024 Bipolar disorder, in partial remission, most recent episode manic (ICD-10 - F31.73) Pt will continue medications as prescribed and will continue therapy to develop goals and manage symptoms. 04/11/2024 Borderline personality disorder (ICD-10 - F60.3) Continue Prozac. Take as prescribed. Reviewed purpose (target depression and anxiety), benefits, and risks - including increased risk of suicide, koby/hypomania, anxiety, sleep disturbance, nausea, dry mouth, increased bruising, sexual dysfunction, weight gain, and serotonin syndrome. Many of these side effects resolve after taking the medication for 2 weeks. Notify the office if any concerns or significant side effects. Reviewed crisis resources. 03/14/2024 PTSD (post-traumatic stress disorder) (ICD-10 - F43.10) Continue with counseling. Follow up in 4 weeks Benzodiazepines are not recommended for long-term use due to potent and dangerous side effects that include increased drowsiness, memory impairment, increased irritability, mood changes, and worsening of PTSD symptoms. Benzodiazepines increase respiratory depression which can aggravate conditions such as sleep apnea and COPD leading to possible . They should also never be combined with alcohol, pain medications (especially opioids), or street drugs because this can lead to overdose and possible . If you are under the influence of benzodiazepines while operating a motor vehicle and are involved in a car accident you can be charged with driving while intoxicated. Benzodiazepine use increases unsteady gait thereby increasing the risk of falls, broken bones, and concussions. Benzodiazepine use is intended for short-term use, up to 3 weeks at most. Long-term use of benzos can lead to dependence, rebound anxiety/agitation, and withdrawal symptoms that include sleep disturbance, irritability, increased tension and anxiety, panic attacks, hand tremor, sweating, difficulty in concentration, dry retching, and nausea, some weight loss, palpitations, headache, muscular pain and stiffness, and a host of perceptual changes. 01/18/2024 PTSD (post-traumatic stress disorder) (ICD-10 - F43.10) Continue with counseling. Follow up in 4 weeks Benzodiazepines are not recommended for long-term use due to potent and dangerous side effects that include increased drowsiness, memory impairment, increased irritability, mood changes, and worsening of PTSD symptoms. Benzodiazepines increase respiratory depression which can aggravate conditions such as sleep apnea and COPD leading to possible . They should also never be combined with alcohol, pain medications (especially opioids), or street drugs because this can lead to overdose and possible . If you are under the influence of benzodiazepines while operating a motor vehicle and are involved in a car accident you can be charged with driving while intoxicated. Benzodiazepine use increases unsteady gait thereby increasing the risk of falls, broken bones, and concussions. Benzodiazepine use is intended for short-term use, up to 3 weeks at most. Long-term use of benzos can lead to dependence, rebound anxiety/agitation, and withdrawal symptoms that include sleep disturbance, irritability, increased tension and anxiety, panic attacks, hand tremor, sweating, difficulty in concentration, dry retching, and nausea, some weight loss, palpitations, headache, muscular pain and stiffness, and a host of perceptual changes. 02/15/2024 PTSD (post-traumatic stress disorder) (ICD-10 - F43.10) Continue with counseling. Follow up in 4 weeks Benzodiazepines are not recommended for long-term use due to potent and dangerous side effects that include increased drowsiness, memory impairment, increased irritability, mood changes, and worsening of PTSD symptoms. Benzodiazepines increase respiratory depression which can aggravate conditions such as sleep apnea and COPD leading to possible . They should also never be combined with alcohol, pain medications (especially opioids), or street drugs because this can lead to overdose and possible . If you are under the influence of benzodiazepines while operating a motor vehicle and are involved in a car accident you can be charged with driving while intoxicated. Benzodiazepine use increases unsteady gait thereby increasing the risk of falls, broken bones, and concussions. Benzodiazepine use is intended for short-term use, up to 3 weeks at most. Long-term use of benzos can lead to dependence, rebound anxiety/agitation, and withdrawal symptoms that include sleep disturbance, irritability, increased tension and anxiety, panic attacks, hand tremor, sweating, difficulty in concentration, dry retching, and nausea, some weight loss, palpitations, headache, muscular pain and stiffness, and a host of perceptual changes. 12/19/2024 Borderline personality disorder (ICD-10 - F60.3) Continue therapy Discussed depression, continue at current doses 12/19/2024 PTSD (post-traumatic stress disorder) (ICD-10 - F43.10) 09/25/2024 Generalized anxiety disorder (ICD-10 - F41.1) continue coping mechanisms and therapy 10/24/2024 Depressive disorder (ICD-10 - F32.9) discussed r/b/se 08/30/2024 Major depressive disorder (ICD-10 - F32.9) 01/09/2025 Borderline personality disorder (ICD-10 - F60.3) Continue therapy Discussed depression, continue at current doses 11/21/2024 Depressive disorder (ICD-10 - F32.9) discussed r/b/se 11/21/2024 PTSD (post-traumatic stress disorder) (ICD-10 - F43.10) 01/09/2025 PTSD (post-traumatic stress disorder) (ICD-10 - F43.10) 09/25/2024 PMDD (premenstrual dysphoric disorder) (ICD-10 - F32.81) 10/24/2024 PTSD (post-traumatic stress disorder) (ICD-10 - F43.10) 12/19/2024 Generalized anxiety disorder (ICD-10 - F41.1) continue coping mechanisms and therapy 01/18/2024 Borderline personality disorder (ICD-10 - F60.3) Continue Prozac. Take as prescribed. Reviewed purpose (target depression and anxiety), benefits, and risks - including increased risk of suicide, koby/hypomania, anxiety, sleep disturbance, nausea, dry mouth, increased bruising, sexual dysfunction, weight gain, and serotonin syndrome. Many of these side effects resolve after taking the medication for 2 weeks. Notify the office if any concerns or significant side effects. Reviewed crisis resources. 02/15/2024 Borderline personality disorder (ICD-10 - F60.3) Continue Prozac. Take as prescribed. Reviewed purpose (target depression and anxiety), benefits, and risks - including increased risk of suicide, koby/hypomania, anxiety, sleep disturbance, nausea, dry mouth, increased bruising, sexual dysfunction, weight gain, and serotonin syndrome. Many of these side effects resolve after taking the medication for 2 weeks. Notify the office if any concerns or significant side effects. Reviewed crisis resources. 04/11/2024 Encounter for medication monitoring (ICD-10 - Z51.81) 03/14/2024 Borderline personality disorder (ICD-10 - F60.3) Continue Prozac. Take as prescribed. Reviewed purpose (target depression and anxiety), benefits, and risks - including increased risk of suicide, koby/hypomania, anxiety, sleep disturbance, nausea, dry mouth, increased bruising, sexual dysfunction, weight gain, and serotonin syndrome. Many of these side effects resolve after taking the medication for 2 weeks. Notify the office if any concerns or significant side effects. Reviewed crisis resources. 04/11/2024 ADHD (attention deficit hyperactivity disorder) (ICD-10 - F90.9) Start Adderall 5mg as needed in the afternoon Discussed healthy habits to help reduce symptoms. Medications as prescribed. Risks vs benefits discussed at length. Possible side effects reviewed. All questions answered. Parent denies any known family history of heart dz. Controlled substance contract completed today. Follow up in 1 month, sooner PRN. 12/19/2024 PMDD (premenstrual dysphoric disorder) (ICD-10 - F32.81) Client also on oral control and states improvement. 03/14/2024 Encounter for medication monitoring (ICD-10 - Z51.81) 01/18/2024 Encounter for medication monitoring (ICD-10 - Z51.81) 02/15/2024 Encounter for medication monitoring (ICD-10 - Z51.81) 10/24/2024 Generalized anxiety disorder (ICD-10 - F41.1) continue coping mechanisms and therapy 09/25/2024 ADHD (attention deficit hyperactivity disorder) (ICD-10 - F90.9) continue to monitor anxiety 01/09/2025 Generalized anxiety disorder (ICD-10 - F41.1) continue coping mechanisms and therapy 11/21/2024 Generalized anxiety disorder (ICD-10 - F41.1) continue coping mechanisms and therapy 11/21/2024 PMDD (premenstrual dysphoric disorder) (ICD-10 - F32.81) 01/09/2025 PMDD (premenstrual dysphoric disorder) (ICD-10 - F32.81) Client also on oral control and states some improvement with fluoxetine. Reports going to talk with Chief Legal Officer about other BC options due to mood fluctuation with menstrual cycle continuing. May look to increase fluoxetine. 10/24/2024 PMDD (premenstrual dysphoric disorder) (ICD-10 - F32.81) 12/19/2024 Over weight (ICD-10 - E66.3) 01/09/2025 Over weight (ICD-10 - E66.3) 01/18/2024 Other Patient was edu cated on diagnosis and symptoms. Discussed the treatment plan, patient is agreeable and accepting of treatment plan. Patient denies further questions or concerns currently. Discussed sleep hygiene and caffeine intake. Encouraged to improve diet, get regular exercise, daily relaxation, and work on managing stress levels.Return to clinic 4 weeks.Labs are up to date. Continue with counseling.Educated patient that if she is or planning to become , she is to let the provider know immediately.The Patient/Guardian is aware of the need to contact the office or return for an earlier appointment if any problems or concerns arise. May also contact the 24-hour crisis hotline ([facility]), refer to the closest emergency room or call 911 if new symptoms arise of existing symptoms worsen; the Patient/Guardian is aware that this would apply to symptoms such as: suicidal ideation, homicidal ideation, high risk behaviors, manic symptoms, psychotic symptoms, physical symptoms, or any other symptoms that may be dangerous to self or others.Greater than 50% of time spent on coordination and counseling where psychopharmacology as well as psychotherapeutic interventions were discussed along with review of treatments in the past.Patient/Angel n was educated about treatments including benefits and risks, alternatives, potential medication side effects, black box warning, and risks of failure if not treated. The Patient/Guardian asked appropriate questions, appeared to understand the answers, and decided to accept the treatment and continue being followed.Discussed the importance of compliance with medications due to the risk of relapse of symptoms.Discussed the risks of taking psychotropic medication when combined with substance use/abuse and/or drinking alcohol. Client was educated about risks and benefits of medication, alternative to medication, alternative to no medications, suicidal ideation with SSRI, education related to psychiatric illness, self-administration, compliance with medication, storage and safeguarding of medication. Will assess appropriateness of medication reduction after client shows stability in current clinical s/s. Reduction will not result in a negative outcome. 02/15/2024 Other Patient was edu cated on diagnosis and symptoms. Discussed the treatment plan, patient is agreeable and accepting of treatment plan. Patient denies further questions or concerns currently. Discussed sleep hygiene and caffeine intake. Encouraged to improve diet, get regular exercise, daily relaxation, and work on managing stress levels.Return to clinic 4 weeks.Labs are up to date. Continue with counseling.Educated patient that if she is or planning to become , she is to let the provider know immediately.The Patient/Guardian is aware of the need to contact the office or return for an earlier appointment if any problems or concerns arise. May also contact the 24-hour crisis hotline ([facility]), refer to the closest emergency room or call 911 if new symptoms arise of existing symptoms worsen; the Patient/Guardian is aware that this would apply to symptoms such as: suicidal ideation, homicidal ideation, high risk behaviors, manic symptoms, psychotic symptoms, physical symptoms, or any other symptoms that may be dangerous to self or others.Greater than 50% of time spent on coordination and counseling where psychopharmacology as well as psychotherapeutic interventions were discussed along with review of treatments in the past.Patient/Angel n was educated about treatments including benefits and risks, alternatives, potential medication side effects, black box warning, and risks of failure if not treated. The Patient/Guardian asked appropriate questions, appeared to understand the answers, and decided to accept the treatment and continue being followed.Discussed the importance of compliance with medications due to the risk of relapse of symptoms.Discussed the risks of taking psychotropic medication when combined with substance use/abuse and/or drinking alcohol. 03/14/2024 Other Patient was edu cated on diagnosis and symptoms. Discussed the treatment plan, patient is agreeable and accepting of treatment plan. Patient denies further questions or concerns currently. Discussed sleep hygiene and caffeine intake. Encouraged to improve diet, get regular exercise, daily relaxation, and work on managing stress levels.Return to clinic 4 weeks.Labs are up to date. Continue with counseling.Educated patient that if she is or planning to become , she is to let the provider know immediately.The Patient/Guardian is aware of the need to contact the office or return for an earlier appointment if any problems or concerns arise. May also contact the 24-hour crisis hotline ([facility]), refer to the closest emergency room or call 911 if new symptoms arise of existing symptoms worsen; the Patient/Guardian is aware that this would apply to symptoms such as: suicidal ideation, homicidal ideation, high risk behaviors, manic symptoms, psychotic symptoms, physical symptoms, or any other symptoms that may be dangerous to self or others.Greater than 50% of time spent on coordination and counseling where psychopharmacology as well as psychotherapeutic interventions were discussed along with review of treatments in the past.Patient/Angel n was educated about treatments including benefits and risks, alternatives, potential medication side effects, black box warning, and risks of failure if not treated. The Patient/Guardian asked appropriate questions, appeared to understand the answers, and decided to accept the treatment and continue being followed.Discussed the importance of compliance with medications due to the risk of relapse of symptoms.Discussed the risks of taking psychotropic medication when combined with substance use/abuse and/or drinking alcohol. 04/11/2024 Other Patient was educated on diagnosis and symptoms. Discussed the treatment plan, patient is agreeable and accepting of treatment plan. Patient denies further questions or concerns currently. Discussed sleep hygiene and caffeine intake. Encouraged to improve diet, get regular exercise, daily relaxation, and work on managing stress levels.Return to clinic 4 weeks.Labs are up to date. Continue with counseling.Educated patient that if she is or planning to become , she is to let the provider know immediately.The Patient/Guardian is aware of the need to contact the office or return for an earlier appointment if any problems or concerns arise. May also contact the 24-hour crisis hotline ([facility]), refer to the closest emergency room or call 911 if new symptoms arise of existing symptoms worsen; the Patient/Guardian is aware that this would apply to symptoms such as: suicidal ideation, homicidal ideation, high risk behaviors, manic symptoms, psychotic symptoms, physical symptoms, or any other symptoms that may be dangerous to self or others.Greater than 50% of time spent on coordination and counseling where psychopharmacology as well as psychotherapeutic interventions were discussed along with review of treatments in the past.Patient/Angel n was educated about treatments including benefits and risks, alternatives, potential medication side effects, black box warning, and risks of failure if not treated. The Patient/Guardian asked appropriate questions, appeared to understand the answers, and decided to accept the treatment and continue being followed.Discussed the importance of compliance with medications due to the risk of relapse of symptoms.Discussed the risks of taking psychotropic medication when combined with substance use/abuse and/or drinking alcohol. 09/25/2024 Other Reasons, potential benefits, potential risks, interactions and side effects of all medications were discussed. The Patient/Guardian asked appropriate questions, appeared to understand the answers, and decided to accept the treatment and continue being followed. Alternatives and expected course without treatment were reviewed. The Patient/Guardian is aware of the need to contact the office or return for an earlier appointment if any problems or concerns arise. May also contact the 24-hour crisis hotline ([facility]), refer to the closest emergency room or call 911 if new symptoms arise of existing symptoms worsen. The Patient/Guardian is aware that this would apply to symptoms like: suicidal ideation, homicidal ideation, high risk behaviors, manic symptoms, psychotic symptoms, physical symptoms, or any other symptoms that may be dangerous to self or others. Greater than 50% of time spent on coordination and counseling where psychopharmacology as well as psychotherapeutic interventions were discussed along with review of treatments in the past. Education provided concerning need for adequate hydration. Patient/Guardian verbalized understanding of education, treatment plan and follow up. This session was completed telephonically with client/parental/guar samir consent: Unable to determine movement status, assess appearance, affect, AIMS, or vital signs. 10/24/2024 Other Reasons, potential benefits, potential risks, interactions and side effects of all medications were discussed. The Patient/Guardian asked appropriate questions, appeared to understand the answers, and decided to accept the treatment and continue being followed. Alternatives and expected course without treatment were reviewed. The Patient/Guardian is aware of the need to contact the office or return for an earlier appointment if any problems or concerns arise. May also contact the 24-hour crisis hotline ([facility]), refer to the closest emergency room or call 911 if new symptoms arise of existing symptoms worsen. The Patient/Guardian is aware that this would apply to symptoms like: suicidal ideation, homicidal ideation, high risk behaviors, manic symptoms, psychotic symptoms, physical symptoms, or any other symptoms that may be dangerous to self or others. Greater than 50% of time spent on coordination and counseling where psychopharmacology as well as psychotherapeutic interventions were discussed along with review of treatments in the past. Education provided concerning need for adequate hydration. Patient/Guardian verbalized understanding of education, treatment plan and follow up. 11/21/2024 Other Reasons, potential benefits, potential risks, interactions and side effects of all medications were discussed. The Patient/Guardian asked appropriate questions, appeared to understand the answers, and decided to accept the treatment and continue being followed. Alternatives and expected course without treatment were reviewed. The Patient/Guardian is aware of the need to contact the office or return for an earlier appointment if any problems or concerns arise. May also contact the 24-hour crisis hotline ([facility]), refer to the closest emergency room or call 911 if new symptoms arise of existing symptoms worsen. The Patient/Guardian is aware that this would apply to symptoms like: suicidal ideation, homicidal ideation, high risk behaviors, manic symptoms, psychotic symptoms, physical symptoms, or any other symptoms that may be dangerous to self or others. Greater than 50% of time spent on coordination and counseling where psychopharmacology as well as psychotherapeutic interventions were discussed along with review of treatments in the past. Education provided concerning need for adequate hydration. Patient/Guardian verbalized understanding of education, treatment plan and follow up. This session was completed telephonically with client/parental/guar samir consent: Unable to determine movement status, assess appearance, affect, AIMS, or vital signs. 12/08/2024 Other Learning About the Safe Use of Antibiotics material was discussed. Pt was educated on use of antibiotic medication including dosing, side effects, adverse effects and anticipated response. Pt was also educated on importance of completing full course of treatment as ordered. Patient voiced understanding of all. SHE WISHES TO START A WT LOSS DRUG AFTER COMPLETING ANTIBX AND WILL CHECK INTO WHAT HER INSURANCE COVERS 12/19/2024 Other Reasons, potential benefits, potential risks, interactions and side effects of all medications were discussed. The Patient/Guardian asked appropriate questions, appeared to understand the answers, and decided to accept the treatment and continue being followed. Alternatives and expected course without treatment were reviewed. The Patient/Guardian is aware of the need to contact the office or return for an earlier appointment if any problems or concerns arise. May also contact the 24-hour crisis hotline ([facility]), refer to the closest emergency room or call 911 if new symptoms arise of existing symptoms worsen. The Patient/Guardian is aware that this would apply to symptoms like: suicidal ideation, homicidal ideation, high risk behaviors, manic symptoms, psychotic symptoms, physical symptoms, or any other symptoms that may be dangerous to self or others. Greater than 50% of time spent on coordination and counseling where psychopharmacology as well as psychotherapeutic interventions were discussed along with review of treatments in the past. Education provided concerning need for adequate hydration. Patient/Guardian verbalized understanding of education, treatment plan and follow up. 01/09/2025 Other Reasons, potential benefits, potential risks, interactions and side effects of all medications were discussed. The Patient/Guardian asked appropriate questions, appeared to understand the answers, and decided to accept the treatment and continue being followed. Alternatives and expected course without treatment were reviewed. The Patient/Guardian is aware of the need to contact the office or return for an earlier appointment if any problems or concerns arise. May also contact the 24-hour crisis hotline ([facility]), refer to the closest emergency room or call 911 if new symptoms arise of existing symptoms worsen. The Patient/Guardian is aware that this would apply to symptoms like: suicidal ideation, homicidal ideation, high risk behaviors, manic symptoms, psychotic symptoms, physical symptoms, or any other symptoms that may be dangerous to self or others. Greater than 50% of time spent on coordination and counseling where psychopharmacology as well as psychotherapeutic interventions were discussed along with review of treatments in the past. Education provided concerning need for adequate hydration. Patient/Guardian verbalized understanding of education, treatment plan and follow up. Plan Of Treatment Pending Test Test Name Order Date Electrocardiogram (EKG), IH 10/31/2024 Future Test Test Name Order Date Cortisol, Urinary Free 12/27/2024 Next Appt Details Provider Name:Helen Pineda elizabet, 01/17/2025 08:20:00 AM, [address], [place], [address], Provider Name:Gray Cary , 01/24/2025 01:00:00 PM, [address], [place], [address], Provider Name:Arlin cullen, 02/07/2025 08:20:00 AM, [address], [place], [address], Insurance Providers Payer Name Payer Address Payer Phone Subscriber Number Group Number Insured Name Patient Relationship to Insured Coverage Start Date Coverage End Date [facility] [address] [place] [address] [id number] Agustina Hurley Self - patient is the insured [address] [place] [address] [id number] Agustina Hurley Self - patient is the insured 0 0 [employer] [address] [place] [address] [id number] Agustina Hurley Self - patient is the insured 0 0 MEDICAID [employer] [address] [place] [address] [id number] Agustina Hurley Self - patient is the insured 0 0 [employer] ([facility]) [address] [place] [address] [id number] Agustina Hurley Self - patient is the insured 0 0 [employer] [facility] [address] [place] [address] [id number] Agustina Hurley Self - patient is the insured 0 0 [facility] [address] [place] [phone] [id number] Agustina Hurley Self - patient is the insured 0 4 [employer] [facility] [address] [place] [phone] [id number] Agustina Hurley Self - patient is the insured 1 4 [employer] [facility] [address] [address] [place] [address] [id number] Agustina Hurley Self - patient is the insured 1 4 [employer] [facility] Telehealth [address] [address] [place] [address] [id number] Agustina Hurley Self - patient is the insured 0 4 [employer] [facility] [address] [address] [place] [address] [id number] Agustina Hurley Self - patient is the insured 2 4 [employer] [facility] [address] [address] [place] [address] [id number] Agustina Hurley Self - patient is the insured 3 4 [facility] [address] [place] [address] [id number] Agustina Hurlye Self - patient is the insured 5 5 Medical (General) History Medical History History ICD Code PTSD (post-traumatic stress disorder) Bipolar 2 disorder, major depressive epi sode Vitamin D deficiency, unspecified chronic shoulder pain/arthritisi PMDD (premenstrual dysphoric disorder) F 32.81 PCOS Surgical History Surgery Date(Month/Year) cyst removal from arm 07/2021 Hospitalization History Reason Date(Month/Year) Caesarean section 07/2021 Reports 3-4 hospitalizatoins for mental health - first hospitalizaton age 11 or 12 2017 last one [facility] 2016
--- OUTSIDE RECORDS SUMMARY | 2025-01-16 08:33 | XMS_ITS | Patient Health Record ---
Author Organization [facility] Cli olivia Address [address] [address] [place] [address] Care Team Providers Care Hand Spinner Name Role Phone Christo Ospina Primary Care Provider Unavailab Christina Leblanc Unavailable [phone] Allergies Allergen (clinical drug ingredient) Drug/Non Drug Allergy documented on EMR Reaction Allergy Type Onset Date Status Latex Latex Unknown Allergy Active Penicillin Unknown Drug Allergy Active Results Component Value Reference Range Notes G6PD Qn Reviewed date:04/19/2024 12:39:34 PM Interpretation: Performing Lab:[facility] , [address] [facility] [id number] Notes/Report: G6PD, Gilbert 13.7 8.0 - 11.9 units/g hb The G6PD activity level is expected to be decreased in the setting of G6PD deficiency. However, G6PD enzyme activity levels can be increased in the setting of reticulocytosis or markedly elevated WBCs. Clinical correlation is required to establish if there is a possibility of a masked G6PD deficiency, particularly in the setting of , chronic, or episodic jaundice/anemia. In addition, enzyme testing is not reliable in the setting of recent red cell transfusion. If desired, genotyping is available G6PDZ/ G6PD Full Gene Sequencing, V. ADDITIONA L INFORMATION -- This test was developed and its performance characteristics determined by [facility] in a manner consistent with CLIA requirements. This test has not been cleared or approved by the U.S. Food and Drug Administration. Test Performed by: [address] [address] [employer] Administrator: Jose Giron Ph.D.; CLIA# [id number] [facility] Reviewed date:04/15/2024 12:35:59 PM Interpretation: Performing Lab:[facility] , [address] [place] [address]. [facility] [id number] Notes/Report: eGFR >90 >=60 mL/min/1.73 m2 Interpretive Data Reference Interval Normal >/= 90 mL/min/1.73m2 Mildly decreased* 60 - 89 mL/min/1.73m2 Mildly to moderately decreased 45 - 59 mL/min/1.73m2 Moderately to severely decreased 30 - 44 mL/min/1.73m2 Severely decreased 15 - 29 mL/min/1.73m2 Kidney Failure < 15 mL/min/1.73m2 *Relative to young adult level Estimated glomerular filtration rate is determined by the 2020 CKD-EPI equation recommended by the National Kid[employer] (A Unifying Approach to GFR Estimation: Recommendations of the NKF-ASK Task Force on Reassessing the Inclusion of Race in Diagnosing Kidney Disease, JASN 2020). The CKD-EPI equation should not be used for patients with unstable renal function and has not been validated in children and those over 70. Current interpretive data was last reviewed 2021. SSB Ab Reviewed date:04/15/2024 12:36:20 PM Interpretation: Performing Lab:[facility] , [address] [place] [address]. [facility] [address] Notes/Report: SS B Antibody <0.2 <=0.9 Ab Index Interpretive Data Negative: < 1.0 Ab Index Positive: > or = 1.0 Ab Index Current interpretive data was last revised on 2016. SSA Ab Reviewed date:04/15/2024 12:36:15 PM Interpretation: Performing Lab:[facility] , [address] [place] [address]. [facility] [address] Notes/Report: SS A Antibody <0.2 <=0.9 Ab Index Interpretive Data Negative: < 1.0 Ab Index Positive: > or = 1.0 Ab Index Current interpretive data was last revised on 2016. Sed Rate Reviewed date:04/15/2024 12:35:31 PM Interpretation: Performing Lab:[facility] , [address] [place] [address]. [facility] [address] Notes/Report: ESR 20 1-20 mm/hr Rheumatoid Factor Reviewed date:04/15/2024 12:35:49 PM Interpretation: Performing Lab:[facility] , [address] [place] [address]. [facility] [address] Notes/Report: RF, Gilbert <10 <=15 IUnits/mL Hep C AB Reviewed date:04/15/2024 12:35:04 PM Interpretation: Performing Lab:[facility] , [address] [place] [address]. [facility] [address] Notes/Report: Hepatitis C Antibody Nonreactive Nonreactive Interpretive Data Nonreactive: Antibodies to HCV not detected. Does NOT exclude the possibility of recent exposure to HCV. Equivocal: Equivocal for HCV antibodies. Supplemental molecular testing will be automatically performed to determine infection status in accordance with current CDC screening recommendations. Reactive: Positive for HCV antibodies. This may represent current or past HCV infection. Supplemental molecular testing will be automatically performed to determine current infection status in accordance with current CDC screening recommendations. Interpretive data was last revised on 2019. Hep B surf AG Reviewed date:04/15/2024 12:35:09 PM Interpretation: Performing Lab:[facility] , [address] [place] [address]. [facility] [address] Notes/Report: Hepatitis B Surface Antigen Nonreactive Nonreactive Differential Automated Reviewed date:04/15/2024 12:35:26 PM Interpretation: Performing Lab:[facility] , [address] [place] [address]. [facility] [address] Notes/Report: Neut Abs 6.3 1.5-6.5 K/cumm ImmGran Abs 0.0 0.0-0.1 K/cumm Lymphocyte Abs 2.4 0.8-3.3 K/cumm Warrick Abs 0.8 0.2-0.8 K/cumm Eos Abs 0.1 0.0-0.5 K/cumm Baso Abs 0.0 0.0-0.1 K/cumm Neut Pct 65.4 Interpretive Data Percent cell count reference ranges are not reported, since discordance with absolute values may lead to misinterpretation of CBC data. Current Interpretive Data was last revised on 2017. ImmGran Pct 0.4 Interpretive Data Percent cell count reference ranges are not reported, since discordance with absolute values may lead to misinterpretation of CBC data. Current Interpretive Data was last revised on 2017. Lymph Pct 24.9 Interpretive Data Percent cell count reference ranges are not reported, since discordance with absolute values may lead to misinterpretation of CBC data. Current Interpretive Data was last revised on 2017. Warrick Pct 7.8 Interpretive Data Percent cell count reference ranges are not reported, since discordance with absolute values may lead to misinterpretation of CBC data. Current Interpretive Data was last revised on 2017. Eos Pct 1.1 Interpretive Data Percent cell count reference ranges are not reported, since discordance with absolute values may lead to misinterpretation of CBC data. Current Interpretive Data was last revised on 2017. Baso Pct 0.4 Interpretive Data Percent cell count reference ranges are not reported, since discordance with absolute values may lead to misinterpretation of CBC data. Current Interpretive Data was last revised on 2017. Creatine Kinase Reviewed date:04/15/2024 12:35:54 PM Interpretation: Performing Lab:[facility] , [address] [place] [address]. [place] [address] Notes/Report: Total CK 81 30-200 Units/L Comprehensive metabolic pane l (CMP) Reviewed date:04/15/2024 12:35:38 PM Interpretation: Performing Lab:[facility] , [address] [place] [address]. [facility] [address] Notes/Report: Sodium 139 135-145 mmol/L Plasma Potassium 4.2 3.3-4.9 mmol/L Chloride 104 97-110 mmol/L Total CO2 24 22-32 mmol/L Anion Gap 11 2-15 mmol/L BUN 13 6-25 mg/dL Creatinine 0.75 0.60-1.10 mg/dL Glucose 82 70-199 mg/dL Interpretive Data Fasting glucose >/= 126 mg/dl is diagnostic for diabetes. Fasting is defined as no caloric intake for at least 8 hours. Fasting glucose between 100 mg/dl to 125 mg/dl is diagnostic of prediabetes. In a patient with classic symptoms of hyperglycemia or hyperglycemic crisis, a random glucose >/= 200 mg/dl is diagnostic for diabetes. In the absence of unequivocal hyperglycemia, results should be confirmed by repeat testing. The classification and Diagnosis of Diabetes Diabetes Care 202; 46: S19-S40. Current interpretive data was last revised 2022. Total Calcium 9.6 8.5-10.3 mg/dL Total Bilirubin <0.2 0.1-1.2 mg/dL Plasma Total Protein 7.4 6.5-8.5 g/dL Albumin 4.2 3.5-5.0 g/dL Alkaline Phosphatase 79 40-130 Units/L ALT 20 7-45 Units/L AST 18 10-45 Units/L CBC w auto diff Reviewed date:04/15/2024 12:35:18 PM Interpretation: Performing Lab:[facility] , [address] [place] [address]. [facility] [address] Notes/Report: WBC 9.7 3.8-9.9 K/cumm Hgb 12.6 11.9-15.5 g/dL Hct 39.0 35.6-45.5 % Platelet Ct 522 150-400 K/cumm MPV 8.7 9.1-12.3 fL RBC 3.92 3.90-5.20 M/cumm MCV 99.5 81.3-96.4 fL MCH 32.1 27.1-33.3 pg MCHC 32.3 32.3-35.7 g/dL RDW CV 13.6 11.1-14.9 % RDW SD 49.4 35.7-48.1 fL NRBC Abs Auto 0.00 0.00-0.01 K/cumm C Reactive Protein Reviewed date:04/15/2024 12:35:44 PM Interpretation: Performing Lab:[facility] , [address] [place] [address]. [facility] [address] Notes/Report: C-Reactive Protein 16.9 <=10.0 mg/L Anti-CCP (Cyclic Citrullinat ed Peptide Ab) Reviewed date:04/16/2024 10:10:46 AM Interpretation: Performing Lab:[facility] , [address] [place] [address]. [facility] [address] Notes/Report: CCP Ab <0.5 <=2.9 units/mL Interpretive data Negative: <3 units/mL Positive: > or equal to 3 units/mL Current interpretive data was last revised on 2016. MARIE reflex titer pattern SUSANNE + dsDNA Reviewed date:04/17/2024 03:17:51 PM Interpretation: Performing Lab:[facility] , [address] [facility]. [place] [address] Notes/Report: MARIE, Qual Negative Interpretive Data Normal range for MARIE Qualitative Antibody = Negative. 1. MARIE is performed using indirect immunofluorescence against HEp-2 cells 2. MARIE titers are performed on all positive qualitative results. 3. A significantly positive MARIE result is defined as a positive nuclear fluorescence at a titer of 1:80 or greater. 4. 15% of normal people above age 65 have significantly positive MARIE results. 5% or less of normal people age 65 or under have significantly positive MARIE results. Current interpretive data was last revised on 2020. Testing performed by: [facility], [address] [place]., [address] Reason For Referral No Information Medications Medication SIG (Take, Route, Fr equency, Duration) Notes Start Date End Date Status Vyvanse 50 MG 1 capsule in the mor reyes Orally Once a day 04/14/2024 Active traZODone HCl 150 MG 1 tablet at bedtime Orally Once a day 04/14/2024 Active Trileptal 600 MG 1 tablet Orally Twice a day 04/14 Active SEROquel 100 MG 1 tablet Orally Once a day 024 Active Adderall 5 MG 1 tablet Orally Twice a day 04/14/20 24 Active clonazePAM 0.5 MG 1 tablet Orally Once a day 04/14 Active Problems Problem Type SNOMED Code ICD Code Onset Dates Problem Status W/U Status Risk Notes Problem [id number] Other chronic pain (G89.29) Active confirmed Vital Signs Heart Rate 85 /min 04/14/2024 Oximetry 99 % 04/14/2024 Blood pressure diastolic 78 mm Hg 04/14/2024 Weight-kg 118.37 kg 04/14/2024 Blood pressure systolic 130 mm Hg 04/14/2024 Weight 261 lbs 04/14/2024 Encounters Encounter Location Date Provider Diagnosis [facility] [address] [place] [address] 04/14/2024 Christina Du Pain in unspecified joint M25.50 ; Cervicalgia M54.2 ; Other chronic pain G89.29 and Lumbar back pain M54.50 [facility] [address] [place] [address] 04/28/2024 Christina Everett Pain in unspecified joint M25.50 ; Cervicalgia M54.2 ; Other chronic pain G89.29 and Lumbar back pain M54.50 [facility] [address] [place] [address] 06/16/2024 Christina Everett [facility] [address] [place] [address] 04/12/2024 Christina Everett [facility] [address] [place] [address] 04/28/2024 Christina Everett Assessments Encounter Date Diagnosis (ICD Code) Assessment Notes Treatment Notes Treatment Clinical Notes Section Notes 04/14/2024 Pain in unspecified joint (ICD-10 - M25.50) 28 year old female with joint pain, neck pain and back pain. She has history of psoriasis and hidradenitis suppurativa. I am asked to evaluate her for psoriatic arthritis. Serologies will be ordered. Follow up virtual visit will be scheduled. 04/14/2024 Cervicalgia (ICD-10 - M54.2) 28 year old female with joint pain, neck pain and back pain. She has history of psoriasis and hidradenitis suppurativa. I am asked to evaluate her for psoriatic arthritis. Serologies will be ordered. Follow up virtual visit will be scheduled. 04/28/2024 Pain in unspecified joint (ICD-10 - M25.50) likely psoriatic arthritis, start SSZ 500mg bid, do labs in 2 weeks, order mailed, return in 6 weeks 04/28/2024 Cervicalgia (ICD-10 - M54.2) likely psoriatic arthritis, start SSZ 500mg bid, do labs in 2 weeks, order mailed, return in 6 weeks 04/14/2024 Other chronic pain (ICD-10 - G89.29) 28 year old female with joint pain, neck pain and back pain. She has history of psoriasis and hidradenitis suppurativa. I am asked to evaluate her for psoriatic arthritis. Serologies will be ordered. Follow up virtual visit will be scheduled. 04/14/2024 Lumbar back pain (ICD-10 - M54.50) 28 year old female with joint pain, neck pain and back pain. She has history of psoriasis and hidradenitis suppurativa. I am asked to evaluate her for psoriatic arthritis. Serologies will be ordered. Follow up virtual visit will be scheduled. 04/28/2024 Other chronic pain (ICD-10 - G89.29) likely psoriatic arthritis, start SSZ 500mg bid, do labs in 2 weeks, order mailed, return in 6 weeks 04/28/2024 Lumbar back pain (ICD-10 - M54.50) likely psoriatic arthritis, start SSZ 500mg bid, do labs in 2 weeks, order mailed, return in 6 weeks Plan Of Treatment Pending Test Test Name Order Date CBC (INCLUDES DIFF/PLT) (6399) COMPREHENSIVE METABOLIC PANEL (36988) CRP (C-REACTIVE PROTEIN) 04/14/2024 RHEUMATOID FACTOR (RF), QUANTITATIVE CK 04/14/2024 CMP(COMPREHENSIVE METABOLIC PANEL) 04/14 HEPATITIS B SURFACE ANTIGEN 04/14/2024 HEPATITIS C ANTIBODY SCREEN, REFLEX TO C ONFIRMATION 04/14/2024 CBC W/DIFF 04/14/2024 SEDIMENTATION RATE, ESR 04/14/2024 HLA B27 DISEASE ASSOCIATION 04/14/2024 CYCLIC CITRULLINATED PEPTIDE (CCP) AB, I gG/IgA 04/14/2024 G6PD, QUANTITATIVE, RBC 04/14/2024 SSA/SSB ANTIBODY (SJOGREN'S) 04/14/2024 MARIE SCREEN/REFLEX TITER/PATTERN 04/14/20 24 Insurance Providers Payer Name Payer Address Payer Phone Subscriber Number Group Number Insured Name Patient Relationship to Insured Coverage Start Date Coverage End Date [employer] [place] [address] [place] [address] [id number] Agustina Hurley Self - patient is the insured Medical (General) History Medical History History ICD Code GERD, asthma, hypertension, pre-eclampsia, bipolar, panic disorder, PTSD, history of substance abuse, depression, ADHD, psoriasis, hidradeniitis suppurativa Surgical History Surgery Date(Month/Year) ganglion cyst removal, wisdom teeth, C s ection
--- OUTSIDE RECORDS SUMMARY | 2025-01-16 08:33 | XMS_ITS | Referral Summary ---
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 Detected [facility] Comment: Interpretive Data Nucleic acid amplification for detection of high-risk Human Papilloma virus (HPV) is performed by the Aime Steffanie 6800 HPV test. This assay specifically detects HPV-16 and HPV-18 genotypes. The following HPV genotypes are detected as high-risk HPV: HPV-31, 33, 35, ,39, 45, 51, 52, 56, 58, 59, 66, and 68. This assay has been approved by the [place] Food and Drug Administration for detection of HPV in cervical specimens collected by a physician using an endocervical brush/spatula or cervical broom and placed in the ThinPrep Pap Test PreservCyt collection containers. The performance characteristics of this test have been verified by the [facility] Molecular Infectious Disease laboratory. Correlate with separately reported cytology results, as applicable. Interpretive data last revised 23 Endocervical 11/14/2024 10:1 9 AM CDT 11/15/2024 10:48 AM CDT Narrative [facility] - 11/16/2024 4:34 AM CDT Clinical history and diagnosis->screening Number of vials->1 Testing type->Screening Last menstrual period (date if known)->11/10/24 Previous positive HPV history?->Yes Previous atypical cytology->ASCUS us Lashae Jackson MD LAB BODY FLUIDS AND STOOL S ORDERABLES Final Result [facility] Department [place] [address] [facility] * Pap and High Risk HPV and Genotyping (Cytology Component) (11/14/2024 10:19 AM CDT) Thin prep (Pap test) 11/14/2024 10:19 AM CDT 11/14/2024 12:37 PM CDT Narrative PATHOLOGY [facility] - 11/24/2024 11:10 AM CDT EPIC results best viewed via link to PDF [facility] [place] [address] Note to Patients: This report may contain a detailed description of human tissue sent by a health care provider to the laboratory for pathologic evaluation. The content of this report is essential for diagnosis and may provide important critical findings. This information may be unfamiliar to patients to review without a medical professional present. It is advised that the patient review this report in the presence of a health care provider who can answer questions and explain the details. CYTOPATHOLOGY REPORT FINAL Patient Name: DAMION HURLEY Gender: F : 1995 (Age: 28) Address: [address] [place], [place] [address] [facility] #: [id number] Service: UNKNOWN Location: Patient Type: [facility] SPECIMEN Taken: 11/14/2024 Received: 11/14/2024 Accessioned: 11/14/2024 Reported: 11/24/2024 Physician(s): Lashae Jackson MD FINAL INTERPRETATION SOURCE OF SPECIMEN Liquid based Thin Prep pap with HPV: STATEMENT OF ADEQUACY - Satisfactory for evaluation - Endocervical cells/transformation zone sample present - Sparsely cellular sample GENERAL CATEGORIZATION: - Negative for squamous intraepithelial lesion or malignancy INTERPRETATION: - Reactive cellular changes associated with inflammation Comments HPV HR 16- Not Detected HPV HR 18- Not Detected HPV HR non 16/18- DETECTED Interpretive Data Nucleic acid amplification for detection of high-risk Human Papilloma virus (HPV) is performed by the Aime Steffanie 6800 HPV test. This assay specifically detects HPV-16 and HPV-18 genotypes. The following HPV genotypes are detected as high-risk HPV: HPV-31, 33, 35, 39, 45, 51, 52, 56, 58, 59, 66, and 68. This assay has been approved by the [place] Food and Drug Administration for detection of HPV in cervical specimens collected by a physician using an endocervical brush/spatula or cervical broom and placed in the ThinPrep Pap Test PreservCyt collection containers. The performance characteristics of this test have been verified by the [facility] Molecular Infectious Disease laboratory. Correlate with reported cytology results, as applicable. Interpretive data last revised 23 estephania/11/23/2024 13:26 By this signature, I attest that the above diagnosis is based upon my personal examination of the slides(and/or other material indicated in the diagnosis). Mendez Jeong M.D. Report Electronically Reviewed and Signed Out By Efe Nick DO 11/24/2024 11:10:27 Jefferson Joyner, [facility](AS[facility]), [facility] Cervicovaginal Cytology (Pap Test) Disclaimer: The Pap test is a screening test used to detect cervical cancer and its precursors; it is not a diagnostic procedure. False negative and false positive results do occur. Pap test results should be interpreted in the context of pertinent clinical information and biopsy results as indicated. [facility] Clinical Laboratory Improvement Amendments (CLIA) mandate that cytologic and histologic results be correlated for laboratory quality management coordinator & improvement standards. FOR ALL HIGH-GRADE CASES we request submission of follow-up histological material and/or reports that have not been previously provided so that we may fulfill said required standards. Gross Description A. Liquid based Thin Prep pap with HPV: Cervical/vaginal - Screening 2 ThinPrep slides Specimen was reprocessed and a second ThinPrep pap stained slide was made for evaluation Clinical Diagnosis and History Last Menstrual Period: 11/10/24 Previous Atypia: ASCUS The patient is a 28 year old female presenting for routine screening. Report Images and scanned documents, if included only viewable in PDF version The performance characteristics of some immunohistochemical stains, in-situ hybridization and fluorescence in-situ hybridization tests and immunophenotyping by flow cytometry cited in this report (if any) were determined by the Surgical Pathology Department at [facility] as part of an ongoing lead quality control technician program and in compliance with federally mandated regulations drawn from the Clinical Laboratory Improvement Act of 1988 (CLIA '88). Some of these tests rely on the use of analyte specific reagents and are subject to specific labeling requirements by the [place] Food and Drug Administration. Such diagnostic tests may only be performed in a facility that is certified by the Department of Health and Human Services as a high complexity laboratory under CLIA '88. The FDA has determined that such clearance or approval is not necessary. This test is used for clinical purposes. It should not be regarded as investigational or for research. Nevertheless, federal rules concerning the medical use of analyte specific reagents require that the following disclaimer be attached to the report: This test was developed and its performance characteristics determined by the Surgical Pathology Department of [facility]. It has not been cleared or approved by the U. S. Food and Drug Administration. Lashae Jackson MD LAB CYTOLOGY ORDERABLES F inal Result PATHOLOGY [facility] 3rd Floor [place], [place] [phone] * HIV 1/2 Antibody plus p24 Antigen Blood (11/14/2024 9:53 AM CDT) HIV 1/2 ab + p24 ag Nonreactive Nonreactive Comment:Nonreactive for HIV- 1 antigen and HIV-1/HIV-2 antibodies. No laboratory evidence of HIV infection. If acute HIV infection is suspected, consider testing for HIV-1 RNA. Current interpretive data was last revised on 22. Blood 11/14/2024 9:53 AM CDT 11/14/2024 12:57 PM CDT Lashae Jackson MD LAB MICROBIOLOGY - GENERA L ORDERABLES Final Result Performing Organization Address City/[facility] [address]/ZIP Co de Phone Number [facility] Department [place] [address] * Hepatitis C antibody Blood (11/14/2024 9:53 AM CDT) Hep C Ab Nonreactive Nonreactive Comment:Antibodies to HCV no t detected. Does NOT exclude the possibility of recent exposure to HCV. Current interpretive data was last revised on 22 Blood 11/14/2024 9:53 AM CDT 11/14/2024 12:57 PM CDT Lashae Jackson MD LAB MICROBIOLOGY - GENERA L ORDERABLES Final Result Performing Organization Address City/[facility] [address]/ZIP Co de Phone Number [facility] [place] [address] * RPR Blood (11/14/2024 9:53 AM CDT) RPR Nonreactive Nonreactive Blood 11/14/2024 9:53 AM CDT 11/14/2024 12:57 PM CDT Lashae Jackson MD LAB MICROBIOLOGY - GENERA L ORDERABLES Final Result Performing Organization Address [facility] [address]/[facility] Co de Phone Number [facility] Department [place] [address] * Hepatitis B Surface Antigen Blood (11/14/2024 9:53 AM CDT) HepBsAg Nonreactive Nonreactive Blood 11/14/2024 9:53 AM CDT 11/14/2024 12:57 PM CDT Lashae Jackosn MD LAB MICROBIOLOGY - GENERA L ORDERABLES Final Result Performing Organization Address City/[facility] [address]/[facility] Co de Phone Number [facility] Department [place] [address] from Last 3 Months Insurance [employer] [facility] [employer] [employer] [place] [employer] [place] Direct[place] For more information, please contact: [phone] * Full Code (Latest Code Status on File) Date Activated Date Inactivated Comments 07/27/2021 4:48 PM 07/31/2021 8:31 PM * Full Code Date Activated Date Inactivated Comments 07/26/2021 9:36 PM 07/27/2021 4:48 PM Full CPR i n case of cardiopulmonary arrest * Full Code Date Activated Date Inactivated Comments 06/16/2021 5:54 PM 06/17/2021 9:09 PM Care Teams Manager Game Relationship Specialty Start Date End Date Christo Ospina NP [address] [place] [id number] PCP - General 01/16/21
--- OUTSIDE RECORDS SUMMARY | 2025-01-16 08:33 | XMS_ITS | Encounter Summary ---
Author Organization [facility] Address 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
--- OUTSIDE RECORDS SUMMARY | 2025-01-16 08:33 | XMS_ITS | Encounter Summary ---
Author Organization [facility] Address 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 Gender Identity Not on file Sexual Orientation Not on file documented as of this encounter Plan of Treatment Not on file documented as of this encounter Procedures Procedure Name Priority Date/Time Associated Diagnosis Comments US PELVIS COMPLETE Timed Study 03/27/2009 2: 17 PM CDT documented in this encounter Results * US PELVIS COMPLETE (03/27/2009 2:17 PM CDT) Anatomical Region Laterality Modality Pelvis Other 03/27/2009 2:17 PM CDT Narrative 03/27/2009 2:32 PM CDT [address] [address] Admit Date: 03/27/2009 AGUSTINA THAPA Sex: F Admit Prov: PRABHAKAR BANUELOS Date: 1995 Primary Care Prov: CMRN: [id number] Room: [facility]: [id number] IMAGING SERVICES Ordering Prov: N/A Accession Number: [id number] Interpretation Examination: Ultrasound pelvis. Clinical History: Amenorrhea. Findings: Transabdominal examination demonstrates the uterus to be normal in size and echotexture without distinct mass. The uterus measures 8.4 x 3.4 x 5.0 cm. The endometrium is sonographically normal and measures 8mm. The ovaries are normal in size and echotexture without distinct mass. The left ovary measures 2.1 x 1.8 x 2.0 cm. The right ovary measures 2.6 x 1.9 x 2.1 cm.. No free pelvic fluid is present. Impression: Normal pelvic ultrasound. . Dictated by: Vangie ZAMORA 03/27/2009 14:29 Electronically signed by: Vangie ZAMORA 03/27/2009 14:30 Procedure Note James Zamora MD - 03/27/2009 [id number] [place], [place] [address] Admit Date: 03/27/2009 AGUSTINA THAPA Sex: F Admit Prov: LAKISHAPRABHAKAR Adriana Date: 1995 Primary Care Prov: CMRN: [id number] Room: [facility] SSN: [id number] IMAGING SERVICES Ordering Prov: N/A Interpretation Examination: Ultrasound pelvis. Clinical History: Amenorrhea. Findings: Transabdominal examination demonstrates the uterus to benormal in size and echotexture without distinct mass. The uterus measures8.4 x 3.4 x 5.0 cm. The endometrium is sonographically normal and [id number]. The ovaries are normal in size and echotexture without distinct mass.The left ovary measures 2.1 x 1.8 x 2.0 cm. The right ovary measures 2.6x 1.9 x 2.1 cm.. No free pelvic fluid is present. Impression: Normal pelvic ultrasound. . Dictated by: Vangie ZAMORA 03/27/2009 14:29 Electronically signed by: Vangie ZAMORA 03/27/2009 14:30 us Prabhakar Banuelos MD US ORDERABLES Final Resu lt documented in this encounter Visit Diagnoses Not on filedocumented in this encounter Care Teams Patternmaker Relationship Specialty Start Date End Date Franck Li MD PCP - General Obstetrics and Gynecology 09/08/16 documented as of this encounter
--- OUTSIDE RECORDS SUMMARY | 2025-01-16 08:33 | XMS_ITS | Encounter Summary ---
Author Organization [facility] Address 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
--- OUTSIDE RECORDS SUMMARY | 2025-01-16 08:33 | XMS_ITS | Encounter Summary ---
Author Organization [facility] Address [address] [place] [address] Care Team Providers Care Instructional Assistant Name Role Phone Franck Li MD Primary Care Provider Encounter Details Date Type Department Care Team (Late st Contact Info) Description 02/10/2009 Inpatient Historical [facility] Adan Cannon MD [address] [place] [id number] Social History Tobacco Use Types Packs/Day Years Used Date Smoking Tobacco: Never Assessed Comments Unknown Sex and Gender Information Value Date Recorded Sex Assigned at Not on file Legal Sex Female 5:02 AM [employer] Gender Identity Not on file Sexual Orientation Not on file documented as of this encounter Plan of Treatment Not on file documented as of this encounter Procedures Procedure Name Priority Date/Time Associated Diagnosis Comments POC GLUCOSE Routine 02/13/2009 6:30 PM CDT POC GLUCOSE Routine 02/13/2009 10:12 AM CDT POC GLUCOSE Routine 02/12/2009 6:48 PM CDT POC GLUCOSE Routine 02/12/2009 10:20 AM CDT POC GLUCOSE Routine 02/12/2009 1:48 AM CDT POC GLUCOSE Routine 02/11/2009 6:33 PM CDT POC GLUCOSE Routine 02/11/2009 2:06 PM CDT POC GLUCOSE Routine 02/11/2009 9:49 AM CDT TSH REFLEXIVE Timed Study 02/10/2009 7:35 PM CDT TESTOSTERONE FREE AND TOTAL Timed Study 02/10/2009 7:35 PM CDT IA-2 ANTIBODY Timed Study 02/10/2009 7:35 PM CDT INSULIN ANTIBODY Timed Study 02/10/2009 7:35 PM CDT CBC WITH DIFFERENTIAL Timed Study 02/10/2009 7:35 PM CDT HCG QUANTITATIVE, BLOOD Timed Study 02/10/2009 7:35 PM CDT LIPID PANEL Timed Study 02/10/2009 7:35 PM CDT COMPREHENSIVE METABOLIC PANEL Timed Study 02/10/2009 7:35 PM CDT HEMOGLOBIN A1C Timed Study 02/10/2009 7:16 PM CDT DRUG SCREEN, URINE Timed Study 02/10/2009 6: 15 PM CDT URINALYSIS W/REFLEX MICROSCOPIC Timed Study 02/10/2009 6:15 PM CDT HCG QUALITATIVE, URINE Timed Study 02/10/2009 6:15 PM CDT documented in this encounter Results * (ABNORMAL) POC GLUCOSE (02/13/2009 6:30 PM CDT) GLUCOSE POC 104(H) 60 - 99 mg/dL [facility] 02/13/2009 6:30 PM CDT 02/13/2009 6:30 PM CDT Adan Cannon MD POINT OF CARE TESTING Final Result Performing Organization Address [facility] de Phone Number INTERFACE SYSTEM Refer to clinic/hospital department [facility] CLIA# [id number] [address] [place] [address] * POC GLUCOSE (02/13/2009 10:12 AM CDT) GLUCOSE POC 99 60 - 99 mg/dL [facility] COMMENT, GLU POC Notified RN [facility] 02/13/2009 10:1 2 AM CDT 02/13/2009 10:12 AM CDT Adan Cannon MD POINT OF CARE TESTING Final Result Performing Organization Address [facility] Phone Number INTERFACE SYSTEM Refer to clinic/hospital department [facility] CLIA# [id number] [address] [place] [address] * POC GLUCOSE (02/12/2009 6:48 PM CDT) GLUCOSE POC 67 60 - 99 mg/dL [facility] 02/12/2009 6:48 PM CDT 02/12/2009 6:48 PM CDT Adan Cannon MD POINT OF CARE TESTING Final Result Performing Organization Address [facility] de Phone Number INTERFACE SYSTEM Refer to clinic/hospital department [facility] CLIA# [id number] [address] [place] [address] * (ABNORMAL) POC GLUCOSE (02/12/2009 10:20 AM CDT) GLUCOSE POC 100(H) 60 - 99 mg/dL [facility] 02/12/2009 10:2 0 AM CDT 02/12/2009 10:20 AM CDT Adan Cannon MD POINT OF CARE TESTING Final Result Performing Organization Address [facility] de Phone Number INTERFACE SYSTEM Refer to clinic/hospital department [facility] CLIA# [id number] [address] [place] [address] * POC GLUCOSE (02/12/2009 1:48 AM CDT) GLUCOSE POC 82 60 - 99 mg/dL [facility] 02/12/2009 1:48 AM CDT 02/12/2009 1:48 AM CDT Adan Cannon MD POINT OF CARE TESTING Final Result Performing Organization Address [facility] Phone Number INTERFACE SYSTEM Refer to clinic/hospital department [facility] CLIA# [id number] [address] [place] [address] * POC GLUCOSE (02/11/2009 6:33 PM CDT) GLUCOSE POC 79 60 - 99 mg/dL [facility] 02/11/2009 6:33 PM CDT 02/11/2009 6:33 PM CDT Adan Cannon MD POINT OF CARE TESTING Final Result Performing Organization Address [facility] Phone Number INTERFACE SYSTEM Refer to clinic/hospital department [facility] CLIA# [id number] [address] [place] [address] * (ABNORMAL) POC GLUCOSE (02/11/2009 2:06 PM CDT) COMMENT, GLU POC Notified RN [facility] GLUCOSE POC 106(H) 60 - 99 mg/dL [facility] 02/11/2009 2:06 PM CDT 02/11/2009 2:06 PM CDT Adan Cannon MD POINT OF CARE TESTING Final Result Performing Organization Address [facility] Co de Phone Number INTERFACE SYSTEM Refer to clinic/hospital department [facility] CLIA# [id number] [address] [place] [address] * POC GLUCOSE (02/11/2009 9:49 AM CDT) GLUCOSE POC 91 60 - 99 mg/dL [facility] COMMENT, GLU POC Notified RN [facility] 02/11/2009 9:49 AM CDT 02/11/2009 9:49 AM CDT Adan Cannon MD POINT OF CARE TESTING Final Result Performing Organization Address [facility] de Phone Number INTERFACE SYSTEM Refer to clinic/hospital department [facility] CLIA# [id number] [address] [place] [address] * HCG QUANTITATIVE, BLOOD (02/10/2009 7:35 PM CDT) HCG QUANT, BLOOD <5 0 - 5 mIU/mL [facility] Comment: Result of 5 - 25 mIU/mL is indeterminant for , repeat of test recommemded in 48 hours. Reference Range: Gestational Age: 3 Weeks 5.8 - 71.2 mIU/mL 4 Weeks 9.5 - 750 mIU/mL 5 Weeks 217 - 7138 mIU/mL 6 Weeks 158 - 31,795 mIU/mL 7 Weeks 3697 - 163,563 mIU/mL 8 Weeks 32,065 - 149,571 mIU/mL 9 Weeks 63,803 - 151,410 mIU/mL 10 Weeks 46,509 - 186,977 mIU/mL 12 Weeks 27,832 - 210,612 mIU/mL 14 Weeks 13,950 - 62,530 mIU/mL 15 Weeks 12,039 - 70,971 mIU/mL 16 Weeks 9040 - 56,451 mIU/mL 17 Weeks 8175 - 55,868 mIU/mL 18 Weeks 8099 - 58,176 mIU/mL Heterophile antibodies and other interfering substances in the serum of some patients may cause a false-positive result in this assay. Before making a diagnosis of malignancy or ectopic ,the result of this test should be confirmed with a urine HCG test and correlated with other clinical evidence. 02/10/2009 7:35 PM CDT 02/10/2009 9:52 PM CDT us Willy Mares MD CHEMISTRY ORDERABLES Edite d Performing Organization Address [facility] Phone Number INTERFACE SYSTEM Refer to clinic/hospital department [facility] CLIA# [id number] [address] [place] [address] * TESTOSTERONE FREE AND TOTAL (02/10/2009 7:35 PM CDT) Pathologist [facility] % FREE TESTOSTERONE 0.54 0.41 - 2.34 % [facility] TESTOSTERONE FREE 1.4 0.5 - 3.9 pg/mL [facility] Comment: Lab test performed by: [employer] [facility]//[employer] [address] [place] [address] FILI MASSEY MD TESTOSTERONE 25 <=40 ng/dL [facility] Comment: Pediatric Reference Ranges by Pubertal Stage for Testosterone, Total, LC/MS/MS (ng/dL): Trey Stage Males Females Stage I 5 or less 8 or less Stage II 167 or less 24 or less Stage III 21-719 28 or less Stage IV 25-912 31 or less Stage V 110-975 33 or less 02/10/2009 7:35 PM CDT 02/10/2009 8:19 PM CDT us Willy Mares MD CHEMISTRY ORDERABLES Final Result Performing Organization Address [facility] Phone Number INTERFACE SYSTEM Refer to clinic/hospital department [facility] CLIA# [id number] [address] [place] [address] * ISLET CELL ANTIBODY (02/10/2009 7:35 PM CDT) ISLET CELL AB NEGATIVE [facility] Comment: Reference Range: NEGATIVE This test was developed and its performance characteristics have been determined by [facility]. It has not been cleared or approved by the U.S. Food and Drug Administration. The FDA has determined that such clearance or approval is not necessary. Performance characteristics refer to the analytical performance of the test. Lab test performed by: [facility]//[facility] [address] [place] [address] ROLLY CLARK M.D.,PH.D. ISLET CELL AB TITER Not Performed JDF Units [facility] Comment: Reference Range: LESS THAN 1.25 TNP-Screening test negative. Titer not performed. NOTE: End point titers are compared to a single international reference standard and values are reported in JDF ([employer] Diabetes [employer]) units. This test was developed and its performance characteristics have been determined by [facility]. It has not been cleared or approved by the U.S. Food and Drug Administration. The FDA has determined that such clearance or approval is not necessary. Performance characteristics refer to the analytical performance of the test. Lab test performed by: [employer] [facility]//[facility] [address] [place] [address] ROLLY CLARK M.D.,PH.D. 02/10/2009 7:35 PM CDT 02/10/2009 8:19 PM CDT us Willy Mares MD CHEMISTRY ORDERABLES Edite d INTERFACE SYSTEM Refer to clinic/hospital department [facility] CLIA# [id number] [address] [place] [address] * INSULIN ANTIBODY (02/10/2009 7:35 PM CDT) INSULIN AB <0.4 U/mL [facility] Comment: Reference Range: <0.4 Lab test performed by: Hang w//[facility] [address] [place] [address] ROLLY CLARK M.D.,PH.D. 02/10/2009 7:35 PM CDT 02/10/2009 8:19 PM CDT us Willy Mares MD CHEMISTRY ORDERABLES Final Result Performing Organization Address [facility] Phone Number INTERFACE SYSTEM Refer to clinic/hospital department [facility] CLIA# [id number] [address] [place] [address] * LIPID PANEL (02/10/2009 7:35 PM CDT) CHOL/HDL RATIO 2.3 2.0 - 5.0 [facility] TRIGLYCERIDE 84 40 - 136 mg/dL [facility] HDL 70 36 - 76 mg/dL [facility] CHOLESTEROL 159 90 - 169 mg/dL [facility] LDL CALCULATED 72 <=109 mg/dL [facility] LIPID PANEL COMMENT See Below [facility] Comment: The adult ATP and pediatric NCEP classifications for lipids are available on the [facility] Intranet at: [email or web address] Select: Lab Policies and Procedures,Current Select: Lipid Panel Interpretation 02/10/2009 7:35 PM CDT 02/10/2009 8:35 PM CDT us Willy Mares MD CHEMISTRY ORDERABLES Edite d Performing Organization Address [facility] de Phone Number INTERFACE SYSTEM Refer to clinic/hospital department [facility] CLIA# [id number] [address] [place] [address] * (ABNORMAL) CBC WITH DIFFERENTIAL (02/10/2009 7:35 PM CDT) HEMATOCRIT 38.2 35.5 - 44.0 % [facility] RDW-STDEV 46.5 37.1 - 48.7 fL [facility] RBC 4.11 3.90 - 4.90 M/uL [facility] MCHC 33.2 31.5 - 35.5 % [facility] MCV 92.9 82.0 - 99.0 fL [facility] PLATELETS 445(H) 140 - 350 K/uL [facility] HEMOGLOBIN 12.7 11.8 - 14.8 g/dL [facility] RDW 13.8 11.5 - 14.5 % [facility] WBC 11.1(H) 4.0 - 9.8 K/uL [facility] MCH 30.9 27.2 - 32.6 pg [facility] MPV 9.6 9.3 - 12.4 fL [facility] BASOPHILS 0 0 - 3 % [facility] BASOPHILS ABSOLUTE 0.02 K/uL [facility] MONOCYTES 7 2 - 13 % [facility] MONOCYTE ABSOLUTE 0.81 K/uL [facility] NEUTROPHILS 70 36 - 74 % [facility] NEUTROPHIL ABSOLUTE 7.71 K/uL [facility] EOSINOPHILS 1(L) 2 - 12 % [facility] EOSINOPHIL ABSOLUTE 0.05 K/uL [facility] LYMPHOCYTES 22 18 - 53 % [facility] LYMPHOCYTE ABSOLUTE 2.48 K/uL [facility] 02/10/2009 7:35 PM CDT 02/10/2009 8:20 PM CDT us Adan Cannon MD HEMATOLOGY ORDERABLES Edite d INTERFACE SYSTEM Refer to clinic/hospital department [facility] CLIA# [id number] [address] [place] [address] * (ABNORMAL) COMPREHENSIVE METABOLIC PANEL (02/10/2009 7:35 PM CDT) GLUCOSE 88 60 - 110 mg/dL [facility] AST 20 12 - 32 U/L [facility] BUN 13 6 - 20 mg/dL [facility] CALCIUM 9.6 8.4 - 10.2 mg/dL [facility] ALBUMIN 4.0 3.2 - 4.5 g/dL [facility] CHLORIDE 104 96 - 108 mmol/L [facility] CREATININE 0.79 0.51 - 0.95 mg/dL [facility] ALT 15 0 - 31 U/L [facility] SODIUM 139 135 - 145 mmol/L [facility] ALKALINE PHOSPHATASE 58 35 - 187 U/L [facility] CO2 24 22 - 30 mmol/L [facility] BILIRUBIN TOTAL 0.1(L) 0.2 - 1.0 mg/dL [facility] POTASSIUM 4.1 3.5 - 4.9 mmol/L [facility] TOTAL PROTEIN 7.4 6.3 - 8.6 g/dL [facility] GFR, N/A:MDRD equation validated for pts. >18 yrs. >=60 mL/min/1 .7 sq meter [facility] GFR N/A:MDRD equation validated for pts. >18 yrs. >=60 mL/min/1 .7 sq meter [facility] Comment: Modification of Diet in Renal Disease (MDRD) study formula. Estimated GFR rate interpretative information for both Americans and non- Americans is available on the [facility] Intranet at: [email or web address] Select: Lab Policies and Procedures Select: Reference Ranges - GFR 02/10/2009 7:35 PM CDT 02/10/2009 8:20 PM CDT Adan Cannon MD CHEMISTRY ORDERABLES Edited Performing Organization Address [facility] de Phone Number INTERFACE SYSTEM Refer to clinic/hospital department [facility] CLIA# [id number] [address] [place] [address] * TSH REFLEXIVE (02/10/2009 7:35 PM CDT) TSH 0.80 0.27 - 4.20 uU/mL [facility] 02/10/2009 7:35 PM CDT 02/10/2009 8:20 PM CDT Adan Cannon MD CHEMISTRY ORDERABLES Final Result Performing Organization Address [facility] Phone Number INTERFACE SYSTEM Refer to clinic/hospital department [facility] CLIA# [id number] [address] [place] [address] * HEMOGLOBIN A1C (02/10/2009 7:16 PM CDT) HEMOGLOBIN A1C 5.0 4.1 - 6.1 % of Hgb [facility] GLUCOSE, MEAN BLOOD 101 mg/dL [facility] 02/10/2009 7:16 PM CDT 02/11/2009 8:13 PM CDT us Willy Mares MD CHEMISTRY ORDERABLES Final Result Performing Organization Address [facility] de Phone Number INTERFACE SYSTEM Refer to clinic/hospital department [facility] CLIA# [id number] [address] [place] [address] * HCG QUALITATIVE, URINE (02/10/2009 6:15 PM CDT) HCG QUAL URINE Negative Negative [facility] SPECIFIC GRAVITY UA 1.024 1.001 - 1.035 [facility] 02/10/2009 6:15 PM CDT 02/10/2009 8:20 PM CDT us Adan Cannon MD URINE ORDERABLES Final Resu lt INTERFACE SYSTEM Refer to clinic/hospital department [facility] CLIA# [id number] [address] [place] [address] * DRUG SCREEN, URINE (02/10/2009 6:15 PM CDT) COMMENT, TOXICOLOGY See Separate Comment [facility] Comment: Urine sample was not handled as a legal specimen and was received without a chain of custody. The result should be used only for medical purposes. False positive and erroneous results can occur due to cross-reacting substances and other factors. Depending on the clinical context, confirmation of all presumptive positive results by a more specific alternate method is recommended. A negative result indicates the analyte, if present, is below the screening threshold. Drug Ref. Range Screening Threshold Amphetamines Negative 1000 ng/mL Barbiturates Negative 200 ng/mL Benzodiazepines Negative 300 ng/mL Cannabinoids Negative 50 ng/mL Cocaine Metabolites Negative 300 ng/mL Opiates Negative 300 ng/mL Phencyclidine Negative 25 ng/mL The cut-off threshold, known cross-reactive compounds, drugs,and specificity information for each of the urine drugs of abuse are available on the [facility] Intranet at: [email or web address] Select: Lab Policies & Procedures Select: Drugs of Abuse-[facility] To inquire about any potential cross-reactivity of a specific drug not listed at this site, please contact the Chemistry Lab at . AMPHETAMINE QUAL, URINE Negative Negative [facility] BARBITURATE QUAL, URINE Negative Negative [facility] BENZODIAZEPINE QUAL, URINE Negative Negative [facility] CANNABINOIDS QUAL, URINE Negative Negative [facility] COCAINE QUAL URINE Negative Negative [facility] OPIATE QUAL, URINE Negative Negative [facility] PCP QUAL, URINE Negative Negative [facility] 02/10/2009 6:15 PM CDT 02/10/2009 8:20 PM CDT us Adan Cannon MD URINE ORDERABLES Edited INTERFACE SYSTEM Refer to clinic/hospital department [facility] CLIA# [id number] [address] [place] [address] * (ABNORMAL) URINALYSIS (02/10/2009 6:15 PM CDT) LEUKOCYTE ESTERASE UA Negative Negative [facility] RBC UA 5(H) 0 - 4 /HPF [facility] SPECIFIC GRAVITY UA 1.024 1.001 - 1.035 [facility] GLUCOSE UA Negative Negative [facility] BLOOD UA 2+(A) Negative [facility] COLOR UA Yellow [facility] NITRITE UA Negative Negative [facility] EPITHELIAL CELLS, URINE 0-2 /HPF [facility] UROBILINOGEN UA <1 <=1 mg/dL [facility] PH UA 6.5 5.0 - 8.0 [facility] WBC UA 3 0 - 5 /HPF [facility] KETONES UA Negative Negative [facility] CLARITY UA Clear Clear [facility] BILIRUBIN UA Negative Negative [facility] PROTEIN UA 1+(A) Negative [facility] 02/10/2009 6:15 PM CDT 02/10/2009 8:20 PM CDT us Adan Cannon MD URINE ORDERABLES Final Resu lt INTERFACE SYSTEM Refer to clinic/hospital department [facility] CLIA# [id number] [address] [place] [address] documented in this encounter Visit Diagnoses Not on filedocumented in this encounter Care Teams Instructional Assistant Relationship Specialty Start Date End Date Franck Li MD PCP - General Obstetrics and Gynecology 09/08/16 documented as of this encounter
--- OUTSIDE RECORDS SUMMARY | 2025-01-16 08:33 | XMS_ITS | Encounter Summary ---
Author Organization [facility] Healthcare Address [address] [place] [address] Care Team Providers Care Granulator Operator Name Role Phone Christo Ospina NP Primary Care Provider [phone] Encounter Details Date Type Department Care Team (Late st Contact Info) Description 11/15/2024 Results Follow-Up [facility] [address] [facility] [address] [place] [id number] Lashae Jackson MD [address] [facility] [address] [place], [place] [id number] Trichomonas vaginalis PCR Vaginal, N. gonorrhoeae/C. trachomatis Amplification Vaginal, High Risk HPV DNA Detection with Genotyping (Molecular component), Pap and High Risk HPV and Genotyping (Cytology Component) Social History Tobacco Use Types Packs/Day Years [...] than three times a week 07/28/2021 Attends [employer] Services Not on file 07/28 Active Member [...] things needed for daily living? No 07/28/2021 [place] Depression Scale Answer Date Recorded [place] Depression Scale Total 11 09/26/2021 The thought of harming myself has occurred to me . 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
--- OUTSIDE RECORDS SUMMARY | 2025-01-16 08:33 | XMS_ITS | Clinical Summary ---
Author Organization [facility] Address [address] [place] [address] Phone Care Team Providers Care Detailer Furniture Name Role Phone Christo Ospina APRN, CNP Primary Care Provid er Allergies Active Allergy Reactions Criticality Noted Date Comments Latex Hives 12/28/2014 Penicillins Unknown 09/27/2016 Medications QUEtiapine Fumarate (SEROQUEL PO) Take 800 mg by mouth nightly. Active OXcarbazepine (TRILEPTAL) 300 MG Tablet Take 300 mg by mouth 2 times daily. Active ergocalciferol (VITAMIN D) 08925 UNIT Capsule wednesday 0 Active folic acid (FOLVITE) 1 MG Tablet every morning. 0 Active clonazePAM (KlonoPIN) 2 MG Tablet Take 2 mg by mouth as needed. Active omeprazole (PriLOSEC) 40 MG CAPSULE DELAYED RELEASE every morning. 0 Active Vit-Fe Fumarate-FA ( VITAMIN PO) Take by mouth every morning. Active Active Problems Problem Noted Date Diagnosed Date Major depressive disorder, r ecurrent severe without psychotic features 11/10/2017 Post traumatic stress disorder 11/10/2017 Panic disorder 11/10/2017 ADHD (attention deficit hype ractivity disorder), inattentive type 11/10/2017 Family History Medical History Relation Name Comments Diabetes Father Congestive Heart Failure Maternal Grandfather Alcohol Abuse Maternal Grandmother Cancer Maternal Grandmother Diabetes Mother Alcohol Abuse Paternal Grandmother Relation Name Status Comments Father Maternal Grandfather Maternal Grandmother Mother Paternal Grandmother Social History Tobacco Use Types Packs/Day Years Used Date Smoking Tobacco: Former Cigarettes 0.3 5 0 10/17/2014 - 10/18/2019 Smokeless Tobacco: Never Tobacco Cessation:Counseling Given: No Alcohol Use Standard Drinks/Week Comments Yes 0 (1 standard drink = 0.6 oz pur e alcohol) 1-2x a month Sexually Active Control Partners Comments Yes Comments No Sex and Gender Information Value Date Recorded Sex Assigned at Not on file Legal Sex Female 7:10 PM CDT Gender Identity Not on file Sexual Orientation Not on file Last Filed Vital Signs Vital Sign Reading Time Taken Comments Blood Pressure 135/84 06/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 Pulse 84 06/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 Temperature 36 C (96.8 F) 06/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 Respiratory Rate 20 06/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 Oxygen Saturation 100% 06/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 Inhaled Oxygen Concentration - - Weight 139.7 kg (308 lb) 05/21/2020 11:00 AM CDT Height 165.1 cm (5' 5) 05/21/2020 11:00 AM CDT Body Mass Index 51.25 05/21/2020 11:00 AM CDT Plan of Treatment Health Maintenance Due Date Last Done Comments Hepatitis C Virus (HCV) Screening 1995 Influenza Immunization (#1) 2024 SARS-COV-2 Immunization ( season) 2024 03/29/2021, 03/08/2021 Respiratory Syncytial Virus (RSV) Immunization (Adult) (1 - 1-dose 75+ series) 2068 Hepatitis B Immunization Completed 994, 1995, 1995 Human Papillomavirus (HPV) Immunization Discontinued 12/30/2007, 08/27/2007, 06/23/2007 Meningococcal Immunization (ACWY) Aged Out 12/13/2008 No longer eligible based on patient's age to complete this topic DTaP/Tdap/Td Immunization Discontinued 2016, 04/16/2006, 12/18/1997, Additional history exists TdaP Immunization Completed 09/21/2016, 04/16/2006 Pneumococcal Immunization Combined Aged Out No longer eligible based on patient's age to complete this topic Rotavirus Immunization Aged Out No lo nger eligible based on patient's age to complete this topic Insurance MEDICAID AETNA [facility] Care Teams Detailer Furniture Relationship Specialty Start Date End Date Christo Ospina APRN, ELECTRONICS PRODUCTION SUPERVISOR PCP - General Advanced Practice Nurse 06/19/20
--- OUTSIDE RECORDS SUMMARY | 2025-01-16 08:33 | XMS_ITS | Clinical Summary ---
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 She notes having some depressed [...] labs. Enrolled in remote BP monitoring # [place] asthma: Stable on prn albuterol. # GI/: [...] (using 0.5mg 2x/wk), trazodone PRN. Patient accepted [facility] referral, will provide on dc. S/p [...] appointment with: * [facility] - [facility] - [id number] [place], [place] [address]Jrtp to schedule an appointment in 1-2 and 6 weeks. Follow up task sent to [facility] scheduling pool. Prior to discharge she was consented and enrolled in [facility] remote blood pressure monitoring. She verified [...] carrier testing. 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) 11/02/2018 Overview (07/21/2021): - History of bipolar disorder, PTSD, and recently diagnosed with borderline personality d/o per patient - Follows with [facility]: Therapist Joyce Best, Psychiatrist Ruby Diaz NP [...] visit - Peds for delivery - For [facility] care providers during L&D Assessment & Plan [...] with BMI of 40.0-44.9, adult 09/08/2016 09/26/2021 Encounters Date Type Department Care Team Description 11/15/2024 Results Follow-Up [facility] [address] [address] Lashae Jackson MD Trichomonas vaginalis PCR Vaginal, N. gonorrhoeae/C. trachomatis Amplification Vaginal, High Risk HPV DNA Detection with Genotyping (Molecular component), Pap and High Risk HPV and Genotyping (Cytology Component) 11/14/2024 11:45 AM CDT - 11/14/2024 11:59 PM CDT Hospital Encounter [facility] [address] [place] [address] Well woman exam Discharge Disposition: Discharge to home or self care 11/14/2024 9:00 AM CDT Office Visit [facility] [address] [facility] [address] [place] [address] Lashae Jackson MD Well woman exam (Primary Dx); Family history of Abby disease; Encounter for surveillance of contraceptive pills 10/30/2024 Telephone [facility] [address] [facility] [address] [place] [address] Yash Dias RN Amenorrhea from Last 3 Months Immunizations Immunization Administration Dates Next Due DTaP, Unspecified 12/18/1997, 5,05/22/1994,03/24,01/23/1994 HPV, Unspecified 12/30/2007,08/27/2007, 7 Hep A, Unspecified 12/13/2008 Hep B, Unspecified 05/22/1994,1993, 994 HiB 03/12/1995, 4,03/24/1994,01/23 Influenza, Quadrivalent, Spl it, Preservative Free, Intramuscular 06/17/2021 Influenza, Split 09/13/2013 Influenza, Trivalent, IM (MDV) 09/13/2013 MMR 07/31/2021(Deferred: No longer needed),12/18/1997,03/12/1995 Meningococcal ACWY, Unspecified 12/13/2008 Polio, Unspecified 12/18/1997, 5,03/24/1994,01/23 Tdap 05/20/2021,09/21/2016,04/16/2006 Varicella 03/20/2004 Surgical History Surgery Date Site/Laterality Comments GANGLION CYST EXCISION WISDOM TOOTH EXTRACTION SECTION 08/16/2020 - 08/15/2021 Medical History Medical History Date Comments Psoriasis Psoriasis Asthma Asthma Depression Depression Migraine headache Headache, migr santiago Personal history of diseases of skin or subcutaneous tissue History of hidradenitis supp urativa - (Added by TW Conv) Psoriatic arthritis (HCC) Family History Medical History Relation Name Comments Alcohol abuse Father Family history of alcohol abuse - (Added by TW Conv) Allergies Father Allergy - (Adde d by TW Conv) Asthma Father Family history of asthma - (Added by TW Conv) Murdock syndrome Father Depression Father Family history of depression - (Added by TW Conv) Hypertension Father Family history of hypertension - (Added by TW Conv) Obesity Father Family history of obesity - (Added by TW Conv) Muscular dystrophy Maternal cousin Patimisa t's mothers twin's daughter's son Allergies Mother Allergy - (Adde d by TW Conv) Asthma Mother Family history of asthma - (Added by TW Conv) Cervical cancer Mother Cancer, cerv ical; Diabetes Mother Diabetes mellit us; Diabetes type II Mother Family hist ory of type 2 diabetes mellitus - (Added by TW Conv) Fibromyalgia Mother Family history of fibromyalgia - (Added by TW Conv) Headache Mother Headaches; Hyperlipidemia Mother Family histor y of hyperlipidemia - (Added by TW Conv) Hypertension Mother Hypertension; Mental illness Mother Family histor y of mental disorder - (Added by TW Conv) Migraines Mother Family history of migraine headaches - (Added by TW Conv) Osteoarthritis Mother Family histor y of osteoarthritis - (Added by TW Conv) Diabetes Other Family history of Diabetes mellitus; Breast cancer Neg Hx Colon cancer Neg Hx Ovarian cancer Neg Hx Uterine cancer Neg Hx Relation Name Status Comments Father Maternal cousin Mother Other Social History Tobacco Use Types Packs/Day Years [...] than three times a week 07/28/2021 Attends [employer] Not on file 07/28 Active Member [...] things needed for daily living? No 07/28/2021 [place] Depression Scale Answer Date Recorded [place] Depression Scale Total 11 09/26/2021 The thought of harming myself has occurred to me . 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 Not on file Not on file Not on file Obstetrics History Para Term AB IAB SAB Ectopic Multiple Livin g Live Births 1 Date Outcome GA Total Labor Labor/2nd/3rd Weight Sex Type Anes PTL Debi A1 A5 Name Clin 021 Term M CS-LTr anv Hernandez Last Filed Vital Signs Vital Sign Reading [...] 11/14/2024 9:09 AM CDT Plan of Treatment Health Maintenance Due Date Last Done Comments Varicella Vaccines (2 of 2 - 2-dose childhood series) 06/12/2004 03/20/2004 Pneumococcal vaccine <65 (1 of 2 - PCV) 2012 Depression Screening 09/26/2022 09/26/2021 Influenza Vaccine (Season Ended) 2025 06/17/2021, 09/13/2013, 09/13/2013 Cervical Cancer Screening 11/14/20252024, 11/14/2024, 11/11/2023, Additional history exists Regular Well Visit/Exam 18-64 11/14/2025 11/14/2024, 11/11/2023 DTaP/Tdap/Td Vaccine (9 - Td or Tdap) 05/20/2031 05/20/2021, 09/21/2016, 04/16/2006, Additional history exists Hepatitis B Screening Completed 05/22/1994 , 1993, 1993 HPV Vaccines Completed 12/30/2007, 08/16, 06/23/2007 Hepatitis C Screening Completed 11/14/2024 , 04/14/2024, 11/11/2023 Procedures Procedure Name Priority Date/Time Associated Diagnosis [...] 1:50 PM CDT) C. trachomatis Not Detected [facility] N. gonorrhoeae Not Detected [facility] Comment: Interpretive Data This assay detects Chlamydia trachomatis and Neisseria gonorrhoeae by nucleic acid amplification testing (NAAT). This assay has been cleared by the [place] Food and Drug administration. The performance characteristics of this test have been verified by the [facility] Molecular Infectious Disease laboratory. The performance characteristics of this test have not been evaluated in individuals less than 14 years of age. Current Interpretive Data was last revised on 2023. Vaginal (None) 11/14/2024 1: 50 PM CDT 11/14/2024 2:26 PM CDT us Lashae Jackson MD LAB MICROBIOLOGY - GENERA L ORDERABLES Final Result [facility] Department [place] [address] [facility] * Trichomonas vaginalis PCR Vaginal (11/14/2024 1:50 PM CDT) Trichomonas DNA Not Detected [facility] Comment: Interpretive Data This assay detects Trichomonas vaginalis by nucleic acid amplification testing (NAAT). This assay has been cleared by the [place] Food and Drug administration. The performance characteristics of this test have been verified by the [facility] Molecular Infectious Disease laboratory. The performance of this test has not been evaluated in individuals less than 18 years of age. Current Interpretive Data was last revised on 2023. Vaginal 11/14/2024 1:50 PM CDT 11/14/2024 2:26 PM CDT Lashae Jackson MD LAB MICROBIOLOGY - GENERA L ORDERABLES Final Result [facility] Department [place] [address] [facility] * (ABNORMAL) High Risk HPV DNA Detection with Genotyping (Molecular component) (11/14/2024 10:19 AM CDT) [facility] HPV HR 16 Not Detected Not Detected [facility] HPV HR 18 Not Detected Not Detected [facility] HPV HR Non 16/18 Detected(A) Not Detected [facility] Comment: Interpretive Data Nucleic acid amplification [...] this test have been verified by the [facility] Molecular Infectious Disease laboratory. Correlate with separately reported cytology results, as applicable. Interpretive data last revised 23 Endocervical 11/14/2024 10:1 9 AM CDT 11/15/2024 10:48 AM CDT Narrative [facility] - 11/16/2024 4:34 AM CDT Clinical history and diagnosis->screening Number of vials->1 Testing type->Screening Last menstrual period (date if known)->11/10/24 Previous positive HPV history?->Yes Previous atypical cytology->ASCUS Lashae Jackson MD LAB BODY FLUIDS AND STOOL S ORDERABLES Final Result [facility] Department [place] [address] [facility] * Pap and High Risk HPV and Genotyping (Cytology Component) (11/14/2024 10:19 AM CDT) Thin prep (Pap test) 11/14/2024 10:19 AM CDT 11/14/2024 12:37 PM CDT Narrative PATHOLOGY [facility] - 11/24/2024 11:10 AM CDT EPIC results best viewed via link to PDF [facility] Dominique Oconnell [facility] [place] [address] Note to Patients: This report may contain [...] Gender: F : 1995 (Age: 28) Address: [address] [place] [id number] [facility] #: [id number] Service: UNKNOWN Location: Patient Type: [facility] SPECIMEN Taken: 11/14/2024 Received: 11/14/2024 Accessioned: 11/14/2024 [...] this test have been verified by the [facility] Molecular Infectious Disease laboratory. Correlate with reported cytology results, as applicable. Interpretive data last revised 23 estephania/11/23/2024 13:26 By this signature, I attest that the above diagnosis is based upon my personal examination of the slides(and/or other material indicated in the diagnosis). Mendez Jeong M.D. Report Electronically Reviewed and Signed Out By Efe Nick DO 11/24/2024 11:10:27 Jefferson Joyner, [facility](ASCP), [facility] Cervicovaginal Cytology (Pap Test) Disclaimer: The Pap test is a screening test used to detect cervical cancer and its precursors; it is not a diagnostic procedure. False negative and false positive results do occur. Pap test results should be interpreted in the context of pertinent clinical information and biopsy results as indicated. [facility] Clinical Laboratory Improvement Amendments (CLIA) mandate that cytologic and histologic results be correlated for laboratory quality assurance supervisor & improvement standards. FOR ALL HIGH-GRADE CASES [...] determined by the Surgical Pathology Department at [facility] as part of an ongoing software quality specialist program and in compliance with federally mandated [...] determined by the Surgical Pathology Department of [facility]. It has not been cleared or approved by the [place]. [place]. Food and Drug Administration. Lashae Jackson MD LAB CYTOLOGY ORDERABLES F inal Result PATHOLOGY [facility] 3rd Floor [place], [place] [phone] * HIV 1/2 Antibody plus p24 Antigen [...] L ORDERABLES Final Result Performing Organization Address [facility] de Phone Number [facility] [place] [address] * Hepatitis C antibody Blood (11/14/2024 9:53 AM CDT) Hep C Ab Nonreactive Nonreactive Comment:Antibodies to HCV no t detected. Does NOT exclude the possibility of recent exposure to HCV. Current interpretive data was last revised on 22 Blood 11/14/2024 9:53 AM CDT 11/14/2024 12:57 PM CDT Lashae Jackson MD LAB MICROBIOLOGY - GENERA L ORDERABLES Final Result Performing Organization Address [facility] de Phone Number [facility] [place] [address] * RPR Blood (11/14/2024 9:53 AM CDT) RPR Nonreactive Nonreactive Blood 11/14/2024 9:53 AM CDT 11/14/2024 12:57 PM CDT Lashae Jackson MD LAB MICROBIOLOGY - GENERA L ORDERABLES Final Result Performing Organization Address [facility] de Phone Number [facility] [place] [address] * Hepatitis B Surface Antigen Blood (11/14/2024 9:53 AM CDT) HepBsAg Nonreactive Nonreactive Blood 11/14/2024 9:53 AM CDT 11/14/2024 12:57 PM CDT Lashae Jackson MD LAB MICROBIOLOGY - GENERA L ORDERABLES Final Result Performing Organization Address City/[facility] Co de Phone Number [facility] Department [place] [address] from Last 3 Months Insurance [employer] [facility] BL CHOICE [place] Direct[place] For more information, please contact: [phone] * Full Code (Latest Code Status on File) Date Activated Date Inactivated Comments 07/27/2021 4:48 PM 07/31/2021 8:31 PM * Full Code Date Activated Date Inactivated Comments 07/26/2021 9:36 PM 07/27/2021 4:48 PM Full CPR i n case of cardiopulmonary arrest * Full Code Date Activated Date Inactivated Comments 06/16/2021 5:54 PM 06/17/2021 9:09 PM Care Teams Neurosurgical Nurse Practitioner Relationship Specialty Start Date End Date Christo Ospina NP [address] [place] [address] [place] [address] PCP - General 01/16/21
== END 2025-01-16 08:26 | disposition home or self-care (01) ==
PROVIDERS: PCP Internal Medicine; Visit Provider Internal Medicine
DX: E66.01 Morbid (severe) obesity due to excess calories (principal)
CPT/HCPCS: 82530